=== PATIENT | female | born 1975 | race African-American/Black ===

== ENCOUNTER 2020-07-20 02:47 | Outpatient (CLI) | payer SELFPAY ==
[2020-07-20 20:23] LABS: COVID-19 RT-PCR UVMMC Result Negative (Negative)
== END 2020-07-20 03:07 ==
PROVIDERS: PCP Student in an Organized Health Care Education/Training Program; Visit Provider Student in an Organized Health Care Education/Training Program
DX: Z20.822 Contact with and (suspected) exposure to COVID-19 (principal)
CPT/HCPCS: U0003

== ENCOUNTER 2020-12-08 02:07 | Outpatient (CLI) | payer SELFPAY ==
[2020-12-08 14:31] LABS: HCT 38.3 % (36.0-46.0); MCH 30.4 pg (27.0-33.0); MCHC 33.9 % (32.0-36.0); MCV 89.5 fL (80-95); MPV 9.1 fL (8.0-11.0); Platelet Count 280 10^3/uL (130-400); RBC 4.28 10^6/uL (3.93-5.22); RDW 11.6 % (11.7-14.6); RDW-SD 38.1 fL; WBC 9.49 10^3/uL (4.4-10.8)
[2020-12-08 15:43] LABS: ALT 45 U/L (14-59); AST 16 U/L (15-37); Albumin 4.2 g/dL (3.4-5.0); Alkaline Phosphatase 56 U/L (46-116); Anion Gap 7.4 mmol/L (3-11); BUN 10 mg/dL (7-18); Bilirubin, Total 0.3 mg/dL (0.2-1.0); CO2 32.6 mmol/L (21.0-32.0); Calcium 9.3 mg/dL (8.5-10.1); Calculated LDL 164 mg/dL (<100); Chloride 98 mmol/L (98-107); Cholesterol 218 mg/dL (<200); Glucose 222 mg/dL (74-106); HDL Cholesterol 36 mg/dL (40-60); Potassium 3.3 mmol/L (3.5-5.1); Sodium 138 mmol/L (136-145); TSH (W/Ref FT4) 0.34 uIU/mL (0.36-3.74); Total Protein 8.5 g/dL (6.4-8.2); Triglyceride 90 mg/dL (<150)
[2020-12-08 16:06] LABS: FREE T4 1.27 ng/dL (0.76-1.46)
[2020-12-11 04:52] LABS: Vitamin D 25 Total 12.4 ng/mL (30-100)
== END 2020-12-08 02:08 | disposition home or self-care (01) ==
LOC: LBO 02:07
PROVIDERS: PCP Student in an Organized Health Care Education/Training Program; Visit Provider Student in an Organized Health Care Education/Training Program
DX: E11.65 Type 2 diabetes mellitus with hyperglycemia (principal); I10 Essential (primary) hypertension; R63.4 Abnormal weight loss; R53.83 Other fatigue; E86.0 Dehydration; E55.9 Vitamin D deficiency, unspecified
CPT/HCPCS: 36415; 80053; 80061; 82306; 85027; 84439; 84443

== ENCOUNTER 2021-10-17 02:44 | Outpatient (CLI) | payer BC, SELFPAY ==
[2021-10-17 09:42] LABS: Anion Gap 9.3 mmol/L (3-11); BUN 14 mg/dL (7-18); CO2 32.7 mmol/L (21.0-32.0); CREATININE 0.7 mg/dL (0.55-1.02); Calcium 8.8 mg/dL (8.5-10.1); Chloride 98 mmol/L (98-107); Glucose 148 mg/dL (74-106); Magnesium 2.2 mg/dL (1.8-2.4); Potassium 3.2 mmol/L (3.5-5.1); Sodium 140 mmol/L (136-145); TSH (W/Ref FT4) 0.71 uIU/mL (0.36-3.74)
== END 2021-10-17 02:45 | disposition home or self-care (01) ==
LOC: LBO 02:45
PROVIDERS: PCP Student in an Organized Health Care Education/Training Program; Visit Provider Student in an Organized Health Care Education/Training Program
DX: I10 Essential (primary) hypertension (principal); E11.65 Type 2 diabetes mellitus with hyperglycemia; E87.6 Hypokalemia; R79.89 Other specified abnormal findings of blood chemistry
CPT/HCPCS: 36415; 80048; 83735; 84443

== ENCOUNTER 2021-11-01 02:39 | Outpatient (CLI) | payer BC, SELFPAY ==
[2021-11-01 08:56] LABS: BUN 12 mg/dL (7-18); CREATININE 0.8 mg/dL (0.55-1.02); Calcium 8.7 mg/dL (8.5-10.1); Chloride 102 mmol/L (98-107); Glucose 149 mg/dL (74-106); Potassium 3.7 mmol/L (3.5-5.1); Sodium 133 mmol/L (136-145)
== END 2021-11-01 02:40 | disposition home or self-care (01) ==
LOC: LBO 02:39
PROVIDERS: PCP Student in an Organized Health Care Education/Training Program; Visit Provider Student in an Organized Health Care Education/Training Program
DX: E87.6 Hypokalemia (principal)
CPT/HCPCS: 36415; 80048

== ENCOUNTER 2021-11-08 12:40 | Outpatient (CLI) | payer BC, SELFPAY ==
--- NOTE | 2021-11-08 08:49 | DI.RAD_ITS ---
Exam(s) XR CERVICAL SP COMP W FLEX/EXT EXAM: XR CERVICAL SP COMP W FLEX/EXT CLINICAL HISTORY: evaluate for spacing, arthritis, bony path,neuropathy,h/o neck injury,h/o TECHNIQUE: COMPARISON: No exams were available for comparison FINDINGS: Six views were obtained including flexion and extension lateral views. Flexion and extension lateral views are unremarkable. Intervertebral disc spaces are well maintained. Neural foramina appear wel l maintained on oblique views. No bony abnormality seen. IMPRESSION: Negative examination of the cervical spine. RADIATION DOSE DELIVERED: Total DLP
== END 2021-11-08 13:00 ==
PROVIDERS: PCP Student in an Organized Health Care Education/Training Program; Visit Provider Student in an Organized Health Care Education/Training Program
DX: G62.9 Polyneuropathy, unspecified (principal); Z87.828 Personal history of other (healed) physical injury and trauma; Z91.81 History of falling; M47.812 Spondylosis without myelopathy or radiculopathy, cervical region
CPT/HCPCS: 72052

== ENCOUNTER 2022-04-19 01:38 | Outpatient (CLI) | payer MEDICAID, SELFPAY ==
--- OUTSIDE RECORDS SUMMARY | 2022-04-19 01:46 | XMS_ITS | Encounter Summary ---
:1975 Author Organization [facility] Address [address] [place] [address] Care Team Providers Name Role Phone Leodan Barnes MD Primary Care Provider Reason for Visit Reason Comments Skin Lesion Encounter Details Date Type Department Care Team Description 06/04/2011 Office Visit Dermatology David Barnard, ulceration (Primary [address]) [address] [place] [address] [id number] [place] [id number] [phone] (Wo rk) Social History Tobacco Use Types Packs/Day Years Used Date Current Every Day Smoker Cigarettes 0.5 10 Sex Assigned at Date Recorded Not on file documented as of this encounter Progress Notes David Barnard MD - 06/04/2011 10:21 AM EST Problems: 1. Followup arthropod bite reactions, lower extremities/ulcerations. 2. Hidradenitis suppurativa. Ebony follows up after last being seen in March. She states that she took Bactrim from my prescription for a week and has been using topical Clindamycin for the hidradenitis. Unfortunately while many of the sites healed on her legs they have not all healed. She is still living in the same apartment. She wonders what else can be done. Physical examination reveals a pleasant 35-year-old woman who is diabetic, overweight and today has two open ulcerations on the right lower extremity laterally on the calf, and one on the left lower ankle laterally. She has hyperpigmented macules at the sites of previous dermatitis and healing. Most of the previous sites have healed. There are no bullae today. 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 a. Sites are not currently itchy but just hurt. No new sites seen. b. Patient has been squeezing these, using iodine, hydrogen peroxide and cleansing them vigorously. c. Recommended that she discontinue this and instead apply Bactroban Ointment and then regular band aid after washing with soap and water once a day. Do not wash with Hibiclens. d. Recommended that she begin Bactroban double strength one p.o. BID for a month and a half then return to clinic. e. Also begin acidophilous tablets one p.o. q. day to prevent vaginal yeast infection. Hidradenitis suppurativa. a. Continue Clindamycin 1% Solution applying q. day to affected areas on a prophylactic basis after washing. b. Patient counseled that things do look overall better although she does now have these three chronic nonhealing ulcerations. She does not have multiple sites as last visit. Copy: TARA Hair documented in this encounter Plan of Treatment Not on filedocumented as of this encounter Visit Diagnoses Diagnosis ulceration - Primary Ulceration of intestine documented in this encounter Care Teams Genetic Engineer Relationship Specialty Start Date End Date Leodan Barnes MD PCP - General 06/04/11 02/07/[address] [place] [phone] documented as of this encounter
--- OUTSIDE RECORDS SUMMARY | 2022-04-19 01:46 | XMS_ITS | Encounter Summary ---
:1975 Author Organization [facility] Address [address] [place] [address] Care Team Providers Name Role Phone Unknown, Provider Primary Care Provider Reason for Visit Reason Onset Date Comments Eye Problem 01/25/2022 Encounter Details Date Type Department Care Team Description 01/25/2022 Telephone [facility] Ophthalmology Unknown, Doctor Eye Problem - [facility] [address] [place], [place] [address] Social History Tobacco Use Types Packs/Day Years Used Date Never Assessed Sex Assigned at Date Recorded Not on file documented as of this encounter Miscellaneous Notes Telephone Encounter - Cici Ceballos - 01/25/2022 1648 EDT Angela set pt up for appt agustín/ MASHA on 01/29/2022 elephone Encounter - Tara Vazquez - 01/25/2022 1627 EDT Urgent referral for Vit Heme LT. See note in Media documented in this encounter Plan of Treatment Upcoming Encounters Date Type Specialty Care Team Description 04/30/2022 Office Visit Ophthalmology Alon Guzman MD [address] [facility], [place], [facility] [place] [address] [place], [place] [phone] (Wo rk) 05/28/2022 Office Visit Ophthalmology Alon Guzman MD [address] [facility], [place], [facility] [address] [place], [place] [phone] (Wo rk) documented as of this encounter Visit Diagnoses Not on filedocumented in this encounter Care Teams Curator [employer] Relationship Specialty Start Date End Date Unknown, Provider, PCP - General 11/30/10 documented as of this encounter
--- OUTSIDE RECORDS SUMMARY | 2022-04-19 01:46 | XMS_ITS | Encounter Summary ---
:1975 Author Organization [facility] Address [address] [place] [address] Care Team Providers Name Role Phone Unknown, Provider Primary Care Provider Encounter Details Date Type Department Care Team Description 05/13/2016 Results Only [facility]- Mariel Graves, [facility] [place], [place] [address] (Wo rk) Social History Tobacco Use Types Packs/Day Years Used Date Never Assessed Sex Assigned at Date Recorded Not on file documented as of this encounter Plan of Treatment Upcoming Encounters Date Type Specialty Care Team Description 04/30/2022 Office Visit Ophthalmology Alon Guzman MD [address] [phone] (Wo rk) 05/28/2022 Office Visit Ophthalmology Alon Guzman MD [address] [phone] (Wo rk) documented as of this encounter Procedures Procedure Name Priority Date/Time Associated Diagnosis Comme nts PAP TEST- RESULT Routine 05/13/2016 0:00 EDT Resu lts for this ONLY procedure are i n the results section. documented in this encounter Results PAP TEST- RESULT ONLY (05/13/2016 0:00 EDT) Pathology Report: CYTOPATHOLOGY REPORT [facility] Reports generated via electronic interface contain tone ginal data; SERVICES however they are lacking the format of the original re port. Caution should be taken when reading/interpreting unfo rmatted reports. Name: ? EBONY SALES ? Accession #: ? [id number] ? : ? 1975 (Age: [age]) ??F ?Collect Da te: ? 05/13/2016 ? Location: ? [facility] ? Receive Date: ? 05/14/20 16 ? Provider: MARIEL HALEY NJW Copy to: ? Final Report SPECIMEN ADEQUACY ? Satisfactory for Evaluation - transformation zone component present GENERAL CATEGORIZATION ? Negative for Intraepithelial Lesion or Malignan cy INTERPRETATION ? Shift in joanie present suggestive of bacterial vaginosis. Last Menstrual Period: 04/18/2016 Hormonal/Contraceptive status: None Other: Additional clinical information: previous paps WNL 11/15, 11/21 Specimen/Source: ??Pap Test, Cervix/Endocervix, ThinPr ep Imaging System with manual evaluation Document reviewed and electronically signed by: ? Nimco Garcia, [place](ASCP) ? Report ??Date: 05/16/2016 09:54 HPV with Pap Test ? Date Ordered: ? 05/16/2016 ? Status: ?? Signed Out ?Date Complete: ? 05/22/2016 ? By: ??Sy stem Interface ? Date Reported: ? 05/22/2016 ? Interpretation RESULT: Negative for HPV. No E6 or E7 mRNA is detected from HPV types 16,18,31,3 3,35, 39,45,51,52,56,58,59,66, and 68 by relay telegrapher media susan amplification. Comments Document reviewed and electronically signed by: ? System Interface ? Report date: 05/22/2016 By the signature above, the attending physician certif ies that he/she has personally conducted a gross and/or microscopic examin ation of the described specimens and rendered or confirmed the above diagnosi s. End of Report Specimen Performing Organization Address City/State/[facility] Code Phon e Number [facility] [address] [place] [address] SERVICES documented in this encounter Visit Diagnoses Not on filedocumented in this encounter Care Teams Head Of Science Relationship Specialty Start Date End Date Unknown, Provider, PCP - General 11/30/10 documented as of this encounter
--- OUTSIDE RECORDS SUMMARY | 2022-04-19 01:46 | XMS_ITS | Encounter Summary ---
:1975 Author Organization [facility] Address [address] [place] [address] Care Team Providers Name Role Phone Unknown, Provider Primary Care Provider Reason for Visit Reason Comments Eye Problem Encounter Details Date Type Department Care Team Description 02/04/2022 Office Visit [facility] Alon Guzman MD Ophthalmology - [address], [facility] [address] [place], [place] [address] [place], [place] [phone] (Wo rk) Social History Tobacco Use Types Packs/Day Years Used Date Current Every Day Smoker Cigarettes 2 Smokeless Tobacco: Never Used Comments: quitting. 2 cigaretes a day Alcohol Use Standard Drinks/Week Comments Not Currently 0 (1 standard drink = 0.6 oz pure alcoho l) Sex Assigned at Date Recorded Not on file documented as of this encounter Progress Notes Alon Guzman MD - 02/04/2022 1230 EDT Chief Complaint Patient presents with ??? Eye Problem Comments Proliferative diabetic retinopathy both eyes HPI Location: Both eyes Pain: 0 - No pain Quality: Blurry Severity: Moderate Duration: Weeks Timing: Constant Lasts: Continuous Context: PDR both eyes Modifying factors: DM Type 2. A1C=5.3 BS are good. Hx of Laser and Hx of Eylea injections to both eyes Associated Signs & Symptoms: vit heme left eye s/p Eylea Visual Fluctuations: Floaters Attestation: Base Eye Exam Visual Acuity (Snellen - Linear) Right Left Dist cc 20/40 20/50 -1 Dist ph cc NI NI Correction: Glasses Tonometry (Applanation, 12:55) Right Left Pressure 20 20 Slit Lamp and Fundus Exam Slit Lamp Exam Right Left Lids/Lashes Normal Normal Conjunctiva/Sclera White and quiet White and quiet Cornea Clear Clear Anterior Chamber Deep and quiet Deep and quiet Iris No neovascularization No neovascularization Lens Nuclear sclerosis Nuclear sclerosis, Cortical cataract All five layers of the cornea are normal unless otherwise specified. Please refer to large retinal drawing. Destruction Prog Retinopathy Photocoag - OD - Right Eye Time Out Confirmed correct patient, procedure, site, and patient consented. Anesthesia Topical anesthesia was used. Anesthetic medications included Proparacaine 0.5%. Laser Information The type of laser was argon. Color was yellow. The duration in seconds was 0.1. The spot size was 200 microns. Laser power was 400. Total spots was 315. Post-op The patient tolerated the procedure well. There were no complications. IMPRESSION: 1. Proliferative diabetic retinopathy associated with type 2 diabetes mellitus, macular edema presence unspecified, unspecified laterality (HCC-CMS) (HCC) DESTRUCTION PROG RETINOPATHY PHOTOCOAG - OD - RIGHT EYE PLAN: Proliferative diabetic retinopathy both eyes Malone retinal photocoagulation added to right eye today #351 Does have some mild VH in this eye too Able to do some laser, but will add more when vit heme clears further Return 1 month, Eylea both eyes I have reviewed the patient's past medical, family, social and surgical history. I have also reviewed the patient's medications, allergies, and problem list. I performed my own HPI and have reviewed the tech's ROS as well. I personally completed this exam myself. Alon Guzman MD I am scribing for Dr. Alon Guzman MD, while he is personally performing the service. BARRON Knight (Scribe) documented in this encounter Plan of Treatment Upcoming Encounters Date Type Specialty Care Team Description 04/30/2022 Office Visit Ophthalmology Alon Guzman MD 111 [facility], [facility], [address] [place], [place] [phone] (Wo rk) 05/28/2022 Office Visit Ophthalmology Alon Guzman MD 111 [facility], [place], [address] [place], [place] [phone] (Wo rk) documented as of this encounter Procedures Procedure Name Priority Date/Time Associated Diagnosis Comme nts DESTRUCTION PROG Routine 02/04/2022 14:17 Proliferative Result s for this RETINOPATHY EDT diabetic retinopathy procedu re are in PHOTOCOAG - OD - associated with type the results RIGHT EYE 2 diabetes mellitus, section . macular edema presence unspecified, unspecified laterality (HCC-CMS) (HCC) documented in this encounter Results DESTRUCTION PROG RETINOPATHY PHOTOCOAG - OD - RIGHT EYE (02/04/2022 14:17 EDT) Specimen Narrative [facility] POINT OF CARE - 02/04/2022 14:17 E DT Time Out Confirmed correct patient, procedure, si te, and patient consented. Anesthesia Topical anesthesia was used. Anesthetic medications included Proparacaine 0.5%. Laser Information The type of laser was argon. Color was y ellow. The duration in seconds was 0.1. The spot size was 200 microns. Lase r power was 400. Total spots was 315. Post-op The patient tolerated the procedure well . There were no complications. Performing Organization Address City/State/ZIP Code Phon e Number [facility] POINT OF CARE documented in this encounter Visit Diagnoses Diagnosis Proliferative diabetic retinopathy assoc iated with type 2 diabetes mellitus, macular edema presence unspecified, unspecified laterality (HCC-CMS) (HCC) - Primary documented in this encounter Eye Exam Visual Acuity (Snellen - Linear) Right eye Left eye Dist cc 20/40 20/50 -1 Dist ph cc NI NI Correction: Glasses Tonometry (Applanation, 12:55) Right eye Left eye Pressure 20 20 Slit Lamp Exam Right eye Left eye Lids/Lashes Normal Normal Conjunctiva/Sclera White and quiet White and quiet Cornea Clear Clear Anterior Chamber Deep and quiet Deep and quiet Iris No neovascularization No neovascularizat ion Lens Nuclear sclerosis Nuclear sclerosis, C ortical cataract Care Teams Electroneurodiagnostic Technician Relationship Specialty Start Date End Date Unknown, Provider, PCP - General 11/30/10 documented as of this encounter
--- OUTSIDE RECORDS SUMMARY | 2022-04-19 01:46 | XMS_ITS | Encounter Summary ---
:1975 Author Organization [facility] Address [address] [place] [address] Care Team Providers Name Role Phone Unknown, Provider Primary Care Provider Encounter Details Date Type Department Care Team Description 11/29/2010 Results Only [facility] Mariel Jama, Laboratory Services - [facility] [address] [facility] [address] [place] [address] [place] [address] [phone] Social History Tobacco Use Types Packs/Day Years Used Date Never Assessed Sex Assigned at Date Recorded Not on file documented as of this encounter Plan of Treatment Upcoming Encounters Date Type Specialty Care Team Description 04/30/2022 Office Visit Ophthalmology Alon Guzman MD [address] [phone] (Wo rk) 05/28/2022 Office Visit Ophthalmology Alon Guzman MD [address] [phone] (Wo rk) documented as of this encounter Procedures Procedure Name Priority Date/Time Associated Diagnosis Comme nts PAP TEST- RESULT Routine 11/29/2010 0:00 EDT Resu lts for this ONLY procedure are i n the results section. documented in this encounter Results PAP TEST- RESULT ONLY (11/29/2010 0:00 EDT) Pathology Report: CYTOPATHOLOGY REPORT ? [facility] ? LAB Reports generated via electr onic interface contain original data; ? however they are lacking the format of the original report. ? Caution should be taken when reading/interpreting unformatted reports. ? Name: ? EBONY SALES ? Accession #: ? [id number] ? : ? 1975 (Age: 35) ??F ?Collect Date: ? 11/29/2010 ? Location: ? [facility] ? R eceive Date: ? 11/30/2010 ? Provider: MARIEL JAMA CNM ? Copy to: ? Final Report ? SPECIMEN ADEQUACY ? Satisfactory for Eval uation ? - transformation zone compon ent absent ? GENERAL CATEGORIZATION ? Negative for Intraepi thelial Lesion or Malignancy ? INTERPRETATION ? Shift in ojanie presen t suggestive of bacterial vaginosis. ? Last Menstural Period: 5/8/1 1 ? Specimen/Source: ??Pap Test, Cervix/Endocervix, ThinPrep Imaging System with ? manual evaluation ? Document reviewed and electr onically signed by: ? Lgoria Verville,CT(ASCP) ? Report ??Date: /25/ 2010 13:44 ? HPV with Pap Test ? Date Ordered: ? 0 12/05/2010 ? Status: ?? Signed Out ?Date Complete: ? 12/10/2010 ? By: ??System Interface ? Date Reported: ? 12/10/2010 ? Interpretation ? RESULT: Negative for HPV typ es 16, 18, 31, 33, 35, 39, 45, 51, 52, ? 56, 58, 59, and 68. ? Comments ? Document reviewed and electr onically signed by: ? System Interface ? Report date: 05/30/20 11 ? By the signature above, the attending physician certifies that he/she has ? personally conducted a gross and/or microscopic examination of the described ? specimens and rendered or co nfirmed the above diagnosis. ? End of Report ? Specimen Performing Organization Address City/State/[facility] Code Phon e Number [facility] [address] [place] [address] SERVICES [facility] [address] [place] [address] documented in this encounter Visit Diagnoses Not on filedocumented in this encounter Care Teams Physical Therapy Technician Relationship Specialty Start Date End Date Unknown, Provider, PCP - General 11/30/10 documented as of this encounter
--- OUTSIDE RECORDS SUMMARY | 2022-04-19 01:46 | XMS_ITS | Encounter Summary ---
:1975 Author Organization [facility] Address [address] [place] [address] Care Team Providers Name Role Phone Unknown, Provider Primary Care Provider Reason for Visit Reason Comments Eye Problem Encounter Details Date Type Department Care Team Description 03/19/2022 Office Visit [facility] Alon Guzman MD Ophthalmology - [address], [address], [facility] 5 [place], [place] [address] [place], [place] [phone] (Wo rk) Social History Tobacco Use [...] encounter Progress Notes Alon Guzman MD - 03/19/2022 1230 EDT Chief Complaint Patient presents with ??? Eye Problem Comments PDR both eyes HPI Location: Both eyes Pain: 0 - No pain Quality: Blurry Severity: Moderate Duration: Years Timing: Lasts: Continuous Context: PDR both eyes Modifying factors: s/p PRP right eye 02/04/22 and Eylea left eye 01/29/22 Associated Signs & Symptoms: Vision better both eyes. Did stop working due to strenoues activity. Since then floaters have diminished and fogginess has improved. Same flashes decrease floaters Visual Fluctuations: Attestation: Base Eye Exam Visual Acuity (Snellen - Linear) Right Left Dist cc 20/60 20/50 +2 Dist ph cc NI NI Correction: Glasses Tonometry (Applanation, 12:44) Right Left Pressure 22 22 Pupils Pupils Right PERRL Left PERRL Neuro/Psych Oriented x3: Yes Mood/Affect: Normal Dilation Both eyes: Tropicamide 1%, Phenylephrine 2.5% @ 12:44 Slit Lamp and Fundus Exam Slit Lamp Exam Right Left Anterior Chamber Deep and quiet Deep and quiet All five layers of the cornea are normal unless otherwise specified. Please refer to large retinal drawing. Intravitreal Injection, Pharmacologic Agent - OU - Both Eyes Time Out 03/19/2022. 12:50. Confirmed correct patient, procedure, site, and patient consented. Anesthesia Right Eye Topical anesthesia was used. Anesthetic medications included Tetracaine 0.5%. Left Eye Topical anesthesia was used. Anesthetic medications included Tetracaine 0.5%, Proparacaine 0.5%. Procedure Right Eye Preparation included 5% betadine to ocular surface, eyelid speculum. A 30 gauge needle was used. Injection: 2 mg aflibercept (EYLEA) intravitreal syringe NDC: 66802-661-82, Lot: [id number], Expiration date: 08/14/2022 Route: intravitreal, Site: Right Eye Left Eye Preparation included 5% betadine to ocular surface, eyelid speculum. A 30 gauge needle was used. Injection: 2 mg aflibercept (EYLEA) intravitreal syringe NDC: 91830-545-54, Lot: [id number], Expiration date: 08/14/2022 Route: intravitreal, Site: Left Eye Post-op Right Eye Post injection exam found visual acuity of at least counting fingers. The patient tolerated the procedure well. There were no complications. Post injection medications were not given. Left Eye Post injection exam found visual acuity of at least counting fingers. The patient tolerated the procedure well. There were no complications. Post injection medications were not given. IMPRESSION: 1. Proliferative diabetic retinopathy associated with type 2 diabetes mellitus, macular edema presence unspecified, unspecified laterality ([facility]) ([facility]) INTRAVITREAL INJECTION, PHARMACOLOGIC AGENT - OU - BOTH EYES aflibercept (EYLEA) intravitreal syringe 2 mg aflibercept (EYLEA) intravitreal syringe 2 mg PLAN: Type 2 DM PDR both eyes Eylea both eyes today Discussed will need to start laser in the left eye at next appointment Pt agrees Return if symptoms worsen or fail to improve, for 4-6 weeks, PRP, left eye. I have reviewed the patient's past medical, family, social and surgical history. I have also reviewed the patient's medications, allergies, and problem list. I performed my own HPI and have reviewed the tech's ROS as well. I personally completed this exam myself. Alon Guzman MD I am scribing for Dr. Alon Guzman MD, while he is personally performing the service. GLADIS Ferris (Scribe) documented in this encounter Plan of Treatment Upcoming Encounters Date Type Specialty Care Team Description 04/30/2022 Office Visit Ophthalmology Alon Guzman MD [address] [facility], [facility], [facility] 5 [place], [place] [phone] (Wo rk) 05/28/2022 Office Visit Ophthalmology Alon Guzman MD [address] [facility], [facility], [facility] 5 [place], [place] [phone] (Wo rk) documented as of this encounter Procedures Procedure Name Priority Date/Time Associated Diagnosis Comme nts INTRAVITREAL Routine 03/19/2022 13:02 Proliferative Results fo r this INJECTION, EDT diabetic retinopathy procedu re are in PHARMACOLOGIC AGENT - associated with typ e the results OU - BOTH EYES 2 diabetes mellitus, secti on. macular edema presence unspecified, unspecified laterality (HCC-CMS) (HCC) documented in this encounter Results INTRAVITREAL INJECTION, PHARMACOLOGIC AGENT - OU - BOTH EYES (03/19/2022 13:02 EDT) Specimen Narrative [facility] POINT OF CARE - 03/19/2022 13:13 E DT Time Out 03/19/2022. 12:50. Confirmed correct patie nt, procedure, site, and patient consented. Anesthesia Right Eye Topical anesthesia was used. Anesthetic medications included Tetracaine 0.5%. Left Eye Topical anesthesia was used. Anesthetic medications included Tetracaine 0.5%, Proparacaine 0.5%. Procedure Right Eye Preparation included 5% betadine to ocul ar surface, eyelid speculum. A 30 gauge needle was used. Injection: 2 mg aflibercept (EYLEA) intravitreal sy ringe ??ND: 17989-614-00, Lot: [id number], E xpiration date: 08/14/2022 ??Route: intravitreal, Site: Right Eye Left Eye Preparation included 5% betadine to ocul ar surface, eyelid speculum. A 30 gauge needle was used. Injection: 2 mg aflibercept (EYLEA) intravitreal sy ringe ??NDC: 00606-151-69, Lot: [id number], E xpiration date: 08/14/2022 ??Route: intravitreal, Site: Left Eye Post-op Right Eye Post injection exam found visual acuity of at least counting fingers. The patient tolerated the procedure well. Th ere were no complications. Post injection medications were not given. Left Eye Post injection exam found visual acuity of at least counting fingers. The patient tolerated the procedure well. Th ere were no complications. Post injection medications were not given. Performing Organization Address City/State/ZIP Code Phon e Number [facility] POINT OF CARE documented in this encounter Visit Diagnoses Diagnosis Proliferative diabetic retinopathy assoc iated with type 2 diabetes mellitus, macular edema presence unspecified, unspecified laterality ([facility]) ([facility]) - Primary documented in this encounter Administered Medications Inactive Administered Medications - up to 3 most recent administrations Medication Order MAR Action Action Date Dose Rate Site aflibercept (EYLEA) intravitreal Given 03/19/2022 12:49 EDT 2 mg Right Eye syringe 2 mg 2 mg, intravitreal, Starting on Fri03/19/22 at 1249, Until Fri03/19/22 at 1514, Routine aflibercept (EYLEA) intravitreal syringe 2 Given 03/19/2022 12:4 9 EDT 2 mg Left Eye mg 2 mg, intravitreal, Starting on Fri03/19/22 at 1249, Until Fri03/19/22 at 1514, Routine documented in this encounter Orders Medications Ordered That Might Not Have Count Last Ord ered Date First Ordered Date Been Administered aflibercept (EYLEA) intravitreal syringe 2 1 03/19 mg documented in this encounter Eye Exam Visual Acuity (Snellen - Linear) Right eye Left eye Dist cc 20/60 20/50 +2 Dist ph cc NI NI Correction: Glasses Tonometry (Applanation, 12:44) Right eye Left eye Pressure 22 22 Pupils Pupils Right eye PERRL Left eye PERRL Neuro/Psych Oriented x3: Yes Mood/Affect: Normal Dilation Both eyes: Tropicamide 1%, Phenylephrine 2.5% @ 12:44 Slit Lamp Exam Right eye Left eye Anterior Chamber Deep and quiet Deep and quiet Care Teams Clearing Distribution Clerk Relationship Specialty Start Date End Date Unknown, Provider, PCP - General 11/30/10 documented as of this encounter
--- OUTSIDE RECORDS SUMMARY | 2022-04-19 01:46 | XMS_ITS | Clinical Summary ---
:1975 Author Organization [facility] Address [address] [place] [address] Care Team Providers Name Role Phone Unknown, Provider Primary Care Provider Allergies No known active allergies Medications Medication Sig Dispensed Refills Start Date End Date Status multivitamin Take 1 Tablet by 0 Active (NEPHROVITE) 0.8 mg mouth at tablet bedtime. vitamin B cmplex Take 1 Tablet by 0 Active 3-IM-V-biotin mouth daily. (NEPHRO-ALY RX) 1-60-300 mg-mg-mcg tablet buPROPion (WELLBUTRIN) Take 200 mg by 0 Active 100 mg tablet mouth 2 times daily. cholecalciferol, Vitamin Take 1,000 Units 0 Active D3, 25 mcg (1,000 unit) by mouth daily. tablet gabapentin (NEURONTIN) Take 100 mg by 0 Active 100 mg capsule mouth 3 times daily. Lutein 10 mg tablet Take by mouth. 0 Active ibuprofen (MOTRIN) 600 Take 600 mg by 0 Active mg tablet mouth as needed for Pain. acetaminophen (TYLENOL) Take 1,000 mg by 0 Active 500 mg tablet mouth as needed for Pain. Active Problems No known active problems Encounters Date Type Specialty Care Team Description 03/19/2022 Office Visit Ophthalmology Alon Guzman MD 02/04/2022 Office Visit Ophthalmology Alon Guzman MD 01/29/2022 Office Visit Ophthalmology Alon Guzman MD 01/25/2022 Telephone Ophthalmology Unknown, Doctor Eye Prob mona from Last 3 Months Medical History Medical History Date Comments Cataract Other states following surgery of eye and adnexa Family History Medical History Relation Name Comments Diabetes Father Hypertension Father Tuberculosis Father Diabetes Mother Hypertension Mother Relation Name Status Comments Father Mother Social History Tobacco Use Types Packs/Day Years Used Date Current Every Day Smoker Cigarettes 2 Smokeless Tobacco: Never Used Comments: quitting. 2 cigaretes a day Alcohol Use Standard Drinks/Week Comments Not Currently 0 (1 standard drink = 0.6 oz pure alcoho l) Sex Assigned at Date Recorded Not on file Plan of Treatment Upcoming Encounters Date Type Specialty Care Team Description 04/30/2022 Office Visit Ophthalmology Alon Guzman MD [address] [facility], [address] [place], [place] [phone] (Wo rk) 05/28/2022 Office Visit Ophthalmology Alon Guzman MD [address] [facility], [address], [address] [place], [place] [phone] (Wo rk) Health Maintenance Due Date Last Done Comments Foot Exam 1975 Hemoglobin A1C (Ha1C) 1975 Hepatitis C Screen 1975 Microalbumin/Creatinine Ratio 1975 COVID-19 Vaccine (#1) 02/26/1978 Lipid Profile Screening (Cholesterol) 1980 Pneumococcal Immunization (1 - PCV) 1983 Hepatitis B Vaccine (1 of 3 - Risk 1996 3-dose series) Eye Exam 03/19/2023 03/19/2022, 02/04/2022, 01/29/2022 Procedures Procedure Name Priority Date/Time Associated Diagnosis Comme nts INTRAVITREAL Routine 03/19/2022 13:02 Proliferative Results fo r this INJECTION, EDT diabetic retinopathy procedu re are in PHARMACOLOGIC AGENT - associated with typ e the results OU - BOTH EYES 2 diabetes mellitus, secti on. macular edema presence unspecified, unspecified laterality ([facility]) ([facility]) DESTRUCTION PROG Routine 02/04/2022 14:17 Proliferative Result s for this RETINOPATHY PHOTOCOAG EDT diabetic retinopath y procedure are in - OD - RIGHT EYE associated with type the results 2 diabetes mellitus, section . macular edema presence unspecified, unspecified laterality ([facility]) ([facility]) INTRAVITREAL Routine 01/29/2022 12:29 Proliferative Results fo r this INJECTION, EDT diabetic retinopathy procedu re are in PHARMACOLOGIC AGENT - associated with typ e the results OS - LEFT EYE 2 diabetes mellitus, sectio n. macular edema presence unspecified, unspecified laterality ([facility]) ([facility]) B-SCAN ULTRASOUND - Routine 01/29/2022 12:28 Vitreous hemorrha ge Results for this OS - LEFT EYE EDT of left eye ([facility]) mehdi wood are in ([facility]) the results section. from Last 3 Months Results INTRAVITREAL INJECTION, PHARMACOLOGIC AGENT - OU - BOTH EYES (03/19/2022 13:02 EDT) Specimen Narrative [facility] POINT OF CARE - 03/19/2022 13:13 E [...] 2 mg aflibercept (EYLEA) intravitreal sy ringe ??[facility]: 71840-614-42, Lot: [id number], E xpiration date: 08/14/2022 ??Route: intravitreal, Site: Right Eye Left Eye Preparation included 5% betadine to ocul ar surface, eyelid speculum. A 30 gauge needle was used. Injection: 2 mg aflibercept (EYLEA) intravitreal sy ringe ??ND: 05255-446-78, Lot: [id number], E xpiration date: 08/14/2022 ??Route: intravitreal, Site: [...] Organization Address City/State/ZIP Code Phon e Number [facility] POINT OF CARE DESTRUCTION PROG RETINOPATHY PHOTOCOAG - OD - RIGHT EYE (02/04/2022 14:17 EDT) Specimen Narrative [facility] POINT OF CARE - 02/04/2022 14:17 E [...] There were no complications. Performing Organization Address [facility] Phon e Number [facility] INTRAVITREAL INJECTION, PHARMACOLOGIC AGENT - OS - LEFT EYE (01/29/2022 12:29 EDT) Specimen Narrative [facility] POINT OF CARE - 01/29/2022 12:29 E DT Time Out 01/29/2022. 11:26. Confirmed correct cori ent, procedure, site, and patient consented. Anesthesia Topical anesthesia was used. Anesthetic medications included Tetracaine 0.5%, Proparacaine 0.5%. Procedure Preparation included eyelid speculum, 5% betadine to ocular surface. A 30 gauge needle was used. Injection: 2 mg aflibercept (EYLEA) intravitreal sy chandni ??[facility]: 93874-078-67, Lot: [id number], E xpiration date: 09/01/2022 ??Route: intravitreal, Site: Left Eye Post-op Post injection exam found visual acuity of at least counting fingers. The patient tolerated the procedure well. Th ere were no complications. The patient received written and verbal post procedure care education. Post injection medications were not given. Performing Organization Address [facility] Phon e Number [facility] B-SCAN ULTRASOUND - OS - LEFT EYE (01/29/2022 12:28 EDT) Specimen Narrative [facility] POINT OF CARE - 01/29/2022 12:28 E DT Quality was good. Findings included vitreous hemorrhage. Notes Retina flat Significant VH Performing Organization Address [facility] Phon e Number [facility] POINT OF CARE from Last 3 Months Insurance Payer Benefit Plan / Subscriber ID Effective Dates Phone Addre ss Type Group [employer] [place] [employer] [id number] 2021-Present [address] MVP [place] [phone] Ebony Wilcox Personal/Family Self [address] ([address]) [address] [place] [address] Ebony Wilcox Personal/Family Self [address] ([address]) [address] [place] [address] Ebony Wilcox Personal/Family Self [address] ([address]) [address] [place] [address] Care Teams College Scouting Coordinator Relationship Specialty Start Date End Date Unknown, Provider, PCP - General 11/30/10
--- OUTSIDE RECORDS SUMMARY | 2022-04-19 01:46 | XMS_ITS | Encounter Summary ---
:1975 Author Organization [facility] Address [address] [place] [address] Care Team Providers Name Role Phone Unknown, Provider Primary Care Provider Encounter Details Date Type Department Care Team Description 10/29/2018 Hospital Encounter [facility] Unknown, Provider, [facility] 0 [facility] [phone] [place] [address] (Work) [phone] Social History Tobacco Use Types Packs/Day Years Used Date Never Assessed Sex Assigned at Date Recorded Not on file documented as of this encounter Discharge Disposition Disposition Code Departure Means Destination Home or Self Jail documented in this encounter Plan of Treatment Upcoming Encounters Date Type Specialty Care Team Description 04/30/2022 Office Visit Ophthalmology Alon Guzman MD [address] [place] [phone] (Wo rk) 05/28/2022 Office Visit Ophthalmology Alon Guzman MD [address] [phone] (Wo rk) documented as of this encounter Visit Diagnoses Not on filedocumented in this encounter Care Teams Manager Mobility Relationship Specialty Start Date End Date Unknown, Provider, PCP - General 11/30/10 documented as of this encounter
--- OUTSIDE RECORDS SUMMARY | 2022-04-19 01:46 | XMS_ITS | Encounter Summary ---
:1975 Author Organization [facility] Address [address] [place] [address] Care Team Providers Name Role Phone Amber Swanson APRN Primary Care Provider Encounter Details Date Type Department Care Team Description 03/15/2011 Abstract Dermatology Donna Chan, RN [address] [facility] [address] [place], [place] [address] Social History Tobacco Use Types Packs/Day Years Used Date Never Assessed Sex Assigned at Date Recorded Not on file documented as of this encounter Plan of Treatment Not on filedocumented as of this encounter Visit Diagnoses Not on filedocumented in this encounter Care Teams Director Of Manufacturing Operations Relationship Specialty Start Date End Date Amber Swanson APRN PCP - General 10/16/10 06/03/11 [address] [place] [address] documented as of this encounter
--- OUTSIDE RECORDS SUMMARY | 2022-04-19 01:46 | XMS_ITS | Encounter Summary ---
:1975 Author Organization [facility] [place] [address] Care Team Providers Name Role Phone Dulce Case DO Primary Care Provider Reason for Referral Consultation (Routine) - Authorized Specialty Diagnoses / Procedures Referred By Contact Refer red To Contact Ophthalmology Diagnoses Diabetic retinopathy associated with type 2 diabetes mellitus, macular edema presence unspecified, unspecified laterality, unspecified retinopathy severity Dulce Case, [facility] Ophthalmology 4b DO [address] [phone] [place], [place] Phone: [phone] Referral ID Status Reason Start Expiration Visits Visits Date Date Requested Authorized [id number] Authorized Consult, 11/16/2021 11/16/2022 6 6 Test & Treat PCP Updated and/or Approved Encounter Details Date Type Department Care Team Description 11/16/2021 Transcribe Orders eDH Incoming Dennise Case r etinopathy Referrals Dulce Mckeon DO associated with type [phone] [place] [address] 2 diabetes m ellitus, RD macular [place] [address] unspecified, unspecified (Work) laterality, unspecified (Fax) retinopathy sev erity Social History Tobacco Use Types Packs/Day Years Used Date Current Every Day Smoker Cigarettes 0.5 10 Sex Assigned at Date Recorded Not on file documented as of this encounter Plan of Treatment Scheduled Referrals Name Type Priority Associated Order Schedule Diagnoses Referral to Outpatient Referral Routine Diabetic Ordered: Ophthalmology Retinopathy 11/16/2021 Associated With Type 2 Diabetes Mellitus, Macular Edema Presence Unspecified, Unspecified Laterality, Unspecified Retinopathy Severity documented as of this encounter Visit Diagnoses Diagnosis Diabetic retinopathy associated with typ e 2 diabetes mellitus, macular edema presence unspecified, unspecified laterality, uns pecified retinopathy severity documented in this encounter Care Teams Physical Science Professor Relationship Specialty Start Date End Date Dulce Case DO PCP - General Family Medicine 02/08/[address] [place] [address] documented as of this encounter
--- OUTSIDE RECORDS SUMMARY | 2022-04-19 01:46 | XMS_ITS | Encounter Summary ---
:1975 Author Organization [facility] Address [address] [place] [address] Care Team Providers Name Role Phone Unknown, Provider Primary Care Provider Reason for Visit Reason Comments Eye Problem Prior Authorization (STAT) - Authorized Specialty Diagnoses / Procedures Referred By Contact Refer red To Contact Diagnoses PDR (proliferative diabetic retinopathy) ([facility]) ([facility]) Wp5 Ophthalmology Alon Guzman MD Procedures KS INJECT INTRAVITREAL PHARMCOLOGIC KS AFLIBERCEPT INJECTION KS BEVACIZUMAB INJECTION [address] [facility] [address] [place] [address] Phone: Fax: Referral ID Status Reason Start Date Expiration Date Visits V isits Requested Authorized [id number] Authorized 01/29/2022 07/13/2022 6 6 Encounter Details Date Type Department Care Team Description 01/29/2022 Office Visit [facility] Alon Guzman MD Ophthalmology - [address] [phone] (Wo rk) Social History Tobacco Use [...] encounter Progress Notes Alon Guzman MD - 01/29/2022 1015 EDT Chief Complaint Patient presents with ??? Eye Problem Comments ERV: Vitreous hemorrhage of left eye. HPI Location: Left eye Pain: 0 - No pain Quality: Blurry Severity: Severe Duration: Days Timing: Constant Lasts: Continuous Context: ERV: Vitreous hemorrhage of left eye x 2 weeks. Modifying factors: DM Type 2. A1C=5.3 BS are good. Hx of Laser and Hx of Eylea injections to both eyes. Last one in November 2020 Associated Signs & Symptoms: Blurry VA in left eye since last Friday. No flashes. Dark spots now and then left eye. Old floaters right. No pain. Visual Fluctuations: Floaters Attestation: Base Eye Exam Visual Acuity (Snellen - Linear) Right Left Dist cc 20/40 -2 20/800 Dist ph cc NI NI Correction: Glasses Tonometry (Applanation, 10:30) Right Left Pressure 19 17 Pupils Pupils Dark Shape React APD Right PERRL 5 Round Brisk - Left PERRL 5 Round Brisk - Visual Patel Right Left Full Restrictions Total inferior temporal, inferior nasal deficiencies; Partial inner superior temporal,superior nasal deficiencies Extraocular Movement Right Left Full, Ortho Full, Ortho Neuro/Psych Oriented x3: Yes Mood/Affect: Normal Dilation Both eyes: Tropicamide 1%, Phenylephrine 2.5% @ 10:30 Additional Tests Color Right Left Ishihara 15/15 Unable Slit Lamp and Fundus Exam Slit Lamp Exam Right Left Lids/Lashes Normal Conjunctiva/Sclera White and quiet Cornea Clear Anterior Chamber Deep and quiet Deep and quiet, iris strands Iris Round and reactive Lens 2+ Nuclear sclerosis, Cortical cataract Vitreous Vitreous heme Fundus Exam Right Left Disc Old NVD Macula VH Vessels NVE S/T arcade VH Periphery PRP 360 heavy inf and light superior, NVE S/T arcade VH All five layers of the cornea are normal unless otherwise specified. Please refer to large retinal drawing. B-Scan Ultrasound - OS - Left Eye Quality was good. Findings included vitreous hemorrhage. Notes Retina flat Significant VH Intravitreal Injection, Pharmacologic Agent - OS - Left Eye Time Out 01/29/2022. 11:26. Confirmed correct patient, procedure, site, and patient consented. Anesthesia Topical anesthesia was used. Anesthetic medications included Tetracaine 0.5%, Proparacaine 0.5%. Procedure Preparation included eyelid speculum, 5% betadine to ocular surface. A 30 gauge needle was used. Injection: 2 mg aflibercept (EYLEA) intravitreal syringe [facility]: 51907-283-93, Lot: [id number], Expiration date: 09/01/2022 Route: intravitreal, Site: Left Eye Post-op Post injection exam found visual acuity of at least counting fingers. The patient tolerated the procedure well. There were no complications. The patient received written and verbal post procedure care education. Post injection medications were not given. IMPRESSION: 1. Proliferative diabetic retinopathy associated with type 2 diabetes mellitus, macular edema presence unspecified, unspecified laterality ([facility]) ([facility]) INTRAVITREAL INJECTION, PHARMACOLOGIC AGENT - OS - LEFT EYE aflibercept (EYLEA) intravitreal syringe 2 mg 2. Vitreous hemorrhage of left eye ([facility]) ([facility]) B-SCAN ULTRASOUND - OS - LEFT EYE PLAN: Vitreous Hemorrhage left eye bscan of the retina-indication media opacity preventing adequate visualization of the fundus with indirect ophthalmoscopy FINDINGS- Vitreous hemorrhage,no evidence of RD ASSESS- no evidence on Bscan of retinal detachment or mass lesion Plan no retinal detachment surgery or laser surgery for holes or tears based on bscan done today PDR- both eyes Active left eye and NVE rand NEOVASCULARIZATION OF THE DISC right eye Appears to be fibrotic, but pt only has partial PRP right Cannot assess laser left as VH precludes view Recommended to start Anti VEGF injections R + B explained Pt agreed Will do Eylea injection today to left eye Also discussed in detail guarded situation both eyes Even with treatment, pt may progress given what I see has already progressed Pt did not get along with DJW and thus did not follow up Discussed with pt that she must remain compliant with follow ups tanesha right now as she appears to have quite active disease Pt understands Has MUCH better a1c control now which is magaña, but also has been DM for 35 years Discussed in detail importance of control Recommended adding Laser to right eye within couple of weeks since we will be doing injection today left Pt agrees Will schedule Pt counseled that good control of blood sugars , blood pressure and blood lipids as well as abstinence from tobacco has been positively corellated with better outlook for diabetes in general and for the eyes as well and he was encouraged to keep these issues under the best possible control with his en docrinologist or general medical provider Return on Friday for PRP right eye I, Dr. Alon Guzman, have performed my own HPI and reviewed the tech's ROS. I have also reviewed the patient's past medical, family, social and surgical history, as well as the patient's medications, allergies, and problem list. I am scribing for Dr.Brian Sameera Guzman MD while he is personally performing the service. BARRON So (Scribe) documented in this encounter Plan of Treatment Upcoming Encounters Date Type Specialty Care Team Description 04/30/2022 Office Visit Ophthalmology Alon Guzman MD 111 [facility], [facility], [facility] [address] [place], [place] [phone] (Wo rk) 05/28/2022 Office Visit Ophthalmology Alon Guzman MD 111 [facility], [facility], [address] [phone] (Wo rk) documented as of this encounter Procedures Procedure Name Priority Date/Time Associated Diagnosis Comme nts INTRAVITREAL Routine 01/29/2022 12:29 Proliferative Results fo r this INJECTION, EDT diabetic retinopathy procedu re are in PHARMACOLOGIC AGENT - associated with typ e the results OS - LEFT EYE 2 diabetes mellitus, sectio n. macular edema presence unspecified, unspecified laterality ([facility]) ([facility]) B-SCAN ULTRASOUND - Routine 01/29/2022 12:28 Vitreous hemorrha ge Results for this OS - LEFT EYE EDT of left eye ([facility]) proce dure are in ([facility]) the results section. documented in this encounter Results INTRAVITREAL INJECTION, PHARMACOLOGIC AGENT - OS - [...] 2 mg aflibercept (EYLEA) intravitreal sy chandni ??[facility]: 25671-054-64, Lot: [id number], E xpiration date: 09/01/2022 ??Route: intravitreal, Site: Left Eye Post-op Post injection exam found visual acuity of at least counting fingers. The patient tolerated the procedure well. Th ere were no complications. The patient received written and verbal post procedure care education. Post injection medications were not given. Performing Organization Address City/State/ZIP Code Phon e Number [facility] POINT OF CARE B-SCAN ULTRASOUND - OS - LEFT EYE (01/29/2022 12:28 EDT) Specimen Narrative [facility] POINT OF CARE - 01/29/2022 12:28 E DT Quality was good. Findings included vitreous hemorrhage. Notes Retina flat Significant VH Performing Organization Address City/[facility]/ZIP Code Phon e Number [facility] POINT OF CARE documented in this encounter Visit Diagnoses Diagnosis Proliferative diabetic retinopathy assoc iated with type 2 diabetes mellitus, macular edema presence unspecified, unspecified laterality ([facility]) (HCC) - Primary Vitreous hemorrhage of left eye ([facility] ) ([facility]) Vitreous hemorrhage documented in this encounter Administered Medications Inactive Administered Medications - up to 3 most recent administrations Medication Order MAR Action Action Date Dose Rate Site aflibercept (EYLEA) intravitreal Given 01/29/2022 11:17 EDT 2 mg Left Eye syringe 2 mg 2 mg, intravitreal, Starting on Fri01/29/22 at 1117, Until Fri01/29/22 at 1432, Routine documented in this encounter Historical Medications This list may reflect changes made after this encounter. Medication Sig Dispensed Refills Start Date End Date acetaminophen (TYLENOL) 500 Take 1,000 mg by 0 mg tablet mouth as needed for Pain. ibuprofen (MOTRIN) 600 mg Take 600 mg by mouth 0 tablet as needed for Pain. Lutein 10 mg tablet Take by mouth. 0 gabapentin (NEURONTIN) 100 Take 100 mg by mouth 0 mg capsule 3 times daily. cholecalciferol, Vitamin Take 1,000 Units by 0 D3, 25 mcg (1,000 unit) mouth daily. tablet buPROPion (WELLBUTRIN) 100 Take 200 mg by mouth 0 mg tablet 2 times daily. vitamin B cmplex Take 1 Tablet by 0 4-IP-S-biotin (NEPHRO-ALY mouth daily. RX) 1-60-300 mg-mg-mcg tablet multivitamin (NEPHROVITE) Take 1 Tablet by 0 0.8 mg tablet mouth at bedtime. added in this encounter Eye Exam Visual Acuity (Snellen - Linear) Right eye Left eye Dist cc 20/40 -2 20/800 Dist ph cc NI NI Correction: Glasses Tonometry (Applanation, 10:30) Right eye Left eye Pressure 19 17 Pupils Pupils Dark Shape React APD Right eye PERRL 5 Round Brisk - Left eye PERRL 5 Round Brisk - Visual Patel Right eye Left eye Full Restrictions Total inferior tempo ral, inferior nasal deficiencies; Partial inner superior tempo ral, superior nasal deficiencies Extraocular Movement Right eye Left eye Full, Ortho Full, Ortho Neuro/Psych Oriented x3: Yes Mood/Affect: Normal Dilation Both eyes: Tropicamide 1%, Phenylephrine 2.5% @ 10:30 Color Right eye Left eye Ishihara 15/15 Unable Slit Lamp Exam Right eye Left eye Lids/Lashes Normal Conjunctiva/Sclera White and quiet Cornea Clear Anterior Chamber Deep and quiet Deep and quiet, iris strands Iris Round and reactive Lens 2+ Nuclear sclerosis, Cortical cataract Vitreous Vitreous heme Fundus Exam Right eye Left eye Disc Old NVD Macula VH Vessels NVE S/T arcade VH Periphery PRP 360 heavy inf and light superior, NV E S/T arcade VH Care Teams Editing Internship Relationship Specialty Start Date End Date Unknown, Provider, PCP - General 11/30/10 documented as of this encounter
--- OUTSIDE RECORDS SUMMARY | 2022-04-19 01:46 | XMS_ITS | Encounter Summary ---
:1975 Author Organization [facility] Address [address] [place] [address] Care Team Providers Name Role Phone Unknown, Provider Primary Care Provider Encounter Details Date Type Department Care Team Description 07/20/2020 Lab Requisition [facility] Outr Resulting Lab, Pathology & Laboratory Provider [facility] [address] [place], [place] [address] Social History Tobacco Use Types Packs/Day Years Used Date Never Assessed Sex Assigned at Date Recorded Not on file documented as of this encounter Plan of Treatment Upcoming Encounters Date Type Specialty Care Team Description 04/30/2022 Office Visit Ophthalmology Alon Guzman MD 111 [facility], [facility] [place], [facility] 5 [place], [place] [phone] (Wo rk) 05/28/2022 Office Visit Ophthalmology Alon Guzman MD 111 [facility], [place] [address] [phone] (Wo rk) documented as of this encounter Procedures Procedure Name Priority Date/Time Associated Diagnosis Comme nts COVID-19 TEST [facility] Today 07/20/2020 8:50 EST LAB PCR COVID-19 TESTING Routine 07/20/2020 8:50 EST Resu lts for this procedure are i n the results section. documented in this encounter Results COVID-19 TEST [facility] LAB PCR (07/20/2020 8:50 EST) Specimen Swab - Entire nasopharynx (body structur e) Performing Organization Address City/State/ZIP Code Phon e Number [facility] [address] [place] [address] SERVICES COVID-19 TESTING (07/20/2020 8:50 EST) COVID-19 rt-PCR Negative Negative [facility] Result Comment: [facility] This test has not been FDA c leared or approved. This test has been authorized by FDA under an EUA for use by authorized laboratories. This test has been authorized only for detection of nucleic acid fro SERVICES m 2019-nCoV, not for any oth er viruses or pathogens. This test is only authorized for the duration of the declaration that circumstances exist justifying the authorization of emergency use of in vitro d iagnostic tests for detectio n and/or diagnosis of 2019-nCoV under section 564(b)(1) of Act, 21 U.S.C ?? 360bbb-3(b) (1), unless the authorization is terminated or revoked sooner. Negative results do not prec lude 2019-nCoV infection and should not be used as the sole basis for treatment or other patient management decisions. Negative results must be combined with clinical observa tions, patient history, and epidemiological informatio n. Performed on the Lagouher Fusion instrument Performing Lab [place] [facility] Lab [facility] SERVICES Specimen Swab Performing Organization Address City/State/ZIP Code Phon e Number [facility] [address] [place] [address] SERVICES documented in this encounter Visit Diagnoses Not on filedocumented in this encounter Care Teams Carving Machine Operator Relationship Specialty Start Date End Date Unknown, Provider, PCP - General 11/30/10 documented as of this encounter
--- OUTSIDE RECORDS SUMMARY | 2022-04-19 01:46 | XMS_ITS | Clinical Summary ---
:1975 Author Organization [facility] [place] [address] Care Team Providers Name Role Phone Dulce Case Primary Care Provider Allergies No known active allergies Medications Medication Sig Dispensed Refills Start Date End Date Status SERTRALINE HCL (ZOLOFT Take by mouth. 0 Active ORAL) METFORMIN HCL Take by mouth. 0 A ctive (METFORMIN ORAL) multivitamin Take 1 tablet by 0 Active (THERAGRAN) tablet mouth daily. Active Problems Problem Noted Date Hidradenitis suppurativa 03/19/2011 Arthropod bite 03/19/2011 Social History Tobacco Use Types Packs/Day Years Used Date Current Every Day Smoker Cigarettes 0.5 10 Sex Assigned at Date Recorded Not on file Plan of Treatment Health Maintenance Due Date Last Done Comments Covid-19 Vaccine (#1) 1982 HIV screen 1995 Hepatitis C Screening 1995 Tdap adult 1996 Tetanus vaccine 1996 HPV test 2007 PAP Smear 2007 Breast Cancer Share Decision Needed 2017 Influenza (Flu) vaccine (1 of 1 - Influenza standard 03/14/2022 series) Insurance Payer Benefit Plan Subscriber ID Effective Dates Phone Address Type / Group [facility] [employer] [facility] [id number] Effective for [phone] [address] [employer] all dates 3 [facility] [id number] Care Teams Chief Diversity Officer Relationship Specialty Start Date End Date Dulce Case DO PCP - General Family Medicine 02/08/[address] [place], [place] [phone]
--- OUTSIDE RECORDS SUMMARY | 2022-04-19 01:46 | XMS_ITS | Encounter Summary ---
:1975 Author Organization [facility] Address [address] [place] [address] Care Team Providers Name Role Phone Unknown, Provider Primary Care Provider Encounter Details Date Type Department Care Team Description 10/29/2018 Results Only [facility]- Jazz Joshi II, MD [phone] [address] [place], [place] [address] (Wo rk) Social History Tobacco Use Types Packs/Day Years Used Date Never Assessed Sex Assigned at Date Recorded Not on file documented as of this encounter Plan of Treatment Upcoming Encounters Date Type Specialty Care Team Description 04/30/2022 Office Visit Ophthalmology Alon Guzman MD 111 [facility] [place] [address] [phone] (Wo rk) 05/28/2022 Office Visit Ophthalmology Alon Guzamn MD 111 [facility] [place] [address] [phone] (Wo rk) documented as of this encounter Procedures Procedure Name Priority Date/Time Associated Diagnosis Comme nts SURGICAL PATHOLOGY Routine 10/29/2018 22:16 Resul ts for this EDT procedure are i n the results section. documented in this encounter Results SURGICAL PATHOLOGY (10/29/2018 22:16 EDT) Pathology Report: SURGICAL PATHOLOGY REPORT [facility] Reports generated via electronic interface contain tone ginal data; LABORATORY however they are lacking the format of the original re port. SERVICES Caution should be taken when reading/interpreting unfo rmatted reports. Name: ? EBONY SALES ? Accession #: ? [id number] ? : ? 1975 (Age: 6 1) ??F ? Collect Date: ? 10/29/2018 ? Location: ? [facility] ? Receive Date: ? 10/30/19 19 ? Provider: JAZZ MANDUJANO II, MD Copy to: ? Final Pathologic Diagnosis: GALLBLADDER, CHOLECYSTECTOMY: - Chronic cholecystitis and cholelithiasis. Document reviewed and electronically signed by: REJI EMMANUEL MD Report ??Date: 11/03/2018 13:08 By the signature above, the attending physician certif ies that he/she has personally conducted a gross and/or microscopic examin ation of the described specimens and rendered or confirmed the above diagnosi s. Specimen(s) Received: Gallbladder Clinical History: Acute cholecystitis Gross Description: ? Received in formalin labelled with proper patient identification (initials C, G) and gallbladder is a n intact gallbladder (10.0 cm in length x 3.5 cm in diameter) with an attached s egment of cystic duct (1.5 cm in length x 0.6 cm in diameter). A brown firm cyst ic duct lymph node (0.6 x 0.5 x 0.3 cm) is present. ? The serosa is smooth and blue-tripp. The mucosa is velvety, dark green and the wall measures 0.2 cm in thickness. The cystic duct lumen is patent. The cystic duct margin is inked blue. There are four multifaceted gallstones which are mckeon-brown and are dark b lack only on the corners of the choleliths that each measure roughly 1.0 x 1.0 x 1.0 cm. There are also num erous small black spiculated choleliths that m easure 3.0 x 1.5 x 0.2 cm in aggregate. ??Photographs of the four largest choleliths are taken. ? Two equal opportunity representative se ctions of the gallbladder, the inked en face cystic duct margin along with the intact cystic duct node are submitted in 1. NATHALIA Aguiar (ASCP) 10/30/2018 8:57 AM End of Report Specimen Performing Organization Address City/State/ZIP Code Phon e Number [facility] [address] [place] [address] SERVICES documented in this encounter Visit Diagnoses Not on filedocumented in this encounter Care Teams Management Specialist Relationship Specialty Start Date End Date Unknown, Provider, PCP - General 11/30/10 documented as of this encounter
[2022-04-19 09:39] LABS: ALT 46 U/L (14-59); AST 22 U/L (15-37); Albumin 3.8 g/dL (3.4-5.0); Alkaline Phosphatase 47 U/L (46-116); Anion Gap 9.2 mmol/L (3-11); BUN 17 mg/dL (7-18); Bilirubin, Total 0.3 mg/dL (0.2-1.0); CO2 25.8 mmol/L (21.0-32.0); CREATININE 0.8 mg/dL (0.55-1.02); Calcium 8.8 mg/dL (8.5-10.1); Calculated LDL 193 mg/dL (<100); Chloride 102 mmol/L (98-107); Cholesterol 263 mg/dL (<200); Estimated GFR 93.12 (mL/min/1.73m2); Glucose 133 mg/dL (74-106); HDL Cholesterol 54 mg/dL (40-60); Potassium 3.9 mmol/L (3.5-5.1); Sodium 137 mmol/L (136-145); TSH (W/Ref FT4) 0.78 uIU/mL (0.36-3.74); Total Protein 8.2 g/dL (6.4-8.2); Triglyceride 83 mg/dL (<150)
[2022-04-22 04:43] LABS: Vitamin D 25 Total 17.1 ng/mL (30-100)
== END 2022-04-19 01:39 | disposition home or self-care (01) ==
PROVIDERS: PCP Student in an Organized Health Care Education/Training Program; Visit Provider Student in an Organized Health Care Education/Training Program
DX: E11.9 Type 2 diabetes mellitus without complications (principal); E86.0 Dehydration; I10 Essential (primary) hypertension; R20.0 Anesthesia of skin; R20.2 Paresthesia of skin; R77.0 Abnormality of albumin; Z79.1 Long term (current) use of non-steroidal anti-inflammatories (NSAID); R79.89 Other specified abnormal findings of blood chemistry; Z13.220 Encounter for screening for lipoid disorders; E11.43 Type 2 diabetes mellitus with diabetic autonomic (poly)neuropathy; E46 Unspecified protein-calorie malnutrition; E55.9 Vitamin D deficiency, unspecified; K31.84 Gastroparesis; R11.2 Nausea with vomiting, unspecified; R63.4 Abnormal weight loss
CPT/HCPCS: 36415; 80053; 80061; 82306; 84443

== ENCOUNTER 2022-07-25 02:07 | Outpatient (CLI) | payer MEDICAID, SELFPAY ==
--- NOTE | 2022-07-25 13:02 | DI.MAMMO_ITS ---
Exam(s) MAMMO SCREENING EXAM: MAMMO SCREENING CLINICAL HISTORY: screening,z12.39 TECHNIQUE: Bilateral full field digital CC and MLO mammographic images were obtained with 3D tomosyn thesis and utilizing computer aided detection (CAD). COMPARISON: Available for comparison. FINDINGS: Masses/Architectural Distortion: None seen. Microcalcifications: No suspicious pleomorphic-type are seen. Skin Thickening/Nipple Retraction: None. IMPRESSION: 1. No significant interval change with no specific features of malignancy noted. 2. Unless there is more urgent need, screening mammography is recommended, as per [place] guidelines. BI-RADS Category 1 - Negative Breast Density - Category B - Scattered areas of fibroglandular density Breast density category C or D implies that the patient has dense breast tissue. Dense breast tissue is very common and is not abnormal but dense breast tissue can make it harder to find cancer on a ma mmogram. Also, dense breast tissue may increase their breast cancer risk. This information about the result of the mammogram report was provided to the patient to raise their awareness. Use this report when you speak with the patient about their risks for breast cancer, which includes their family hist ory. At that time, you may recommend for more screening tests (Ultrasound or MRI) as they might be us eful based on their risk. A negative radiographic report should not delay biopsy if a dominant or clinically suspicious mass is present. Up to ten percent of cancers are not identified on mammography. A negative report may reinforce clinical impression. Adenosis and dense breasts may obscure an underlying neoplasm. False positive reports average 6 to 10%. Patient will receive a letter notifying them of these results.
== END 2022-07-25 02:27 ==
PROVIDERS: PCP Student in an Organized Health Care Education/Training Program; Visit Provider Student in an Organized Health Care Education/Training Program
DX: Z12.31 Encounter for screening mammogram for malignant neoplasm of breast (principal)
CPT/HCPCS: 77063; 77067

== ENCOUNTER 2022-10-18 00:15 | Outpatient (CLI) | payer MEDICAID, SELFPAY ==
--- NOTE | 2022-10-18 07:45 | DI.RAD_ITS ---
Exam(s) XR HAND LT COMPLETE EXAM: XR HAND LT COMPLETE CLINICAL HISTORY: LT THUMB PAIN, M79.646, EVAL JOINT SPACE,? BONY PATHOLOGY. TECHNIQUE: 2D digital imaging was performed of the left hand. Three views were obtained. AP, later al and oblique views were obtained. COMPARISON: No exams were available for comparison FINDINGS: BONES: No acute fracture is present. No bony destructive lesion is seen. The bones are normally appeals examiner alized. JOINTS: No dislocation present. There are small subchondral cysts seen at the PIP joints of the 3rd a nd 4th fingers. No erosions are seen. The joints of the thumb are all well maintained. No bony hyp ertrophy or joint space narrowing is seen. SOFT TISSUE: The soft tissues are unremarkable. IMPRESSION: Unremarkable left thumb. DATA REPOSITORY: RADIATION DOSE DELIVERED:
--- NOTE | 2022-10-18 07:45 | DI.RAD_ITS ---
Exam(s) XR HAND RT COMPLETE EXAM: XR HAND RT COMPLETE CLINICAL HISTORY: RT FINGER PAIN,TRIGGER FINGER,EVAL JOINT SPACE, ? BONY PATHOLOGY. TECHNIQUE: 2D digital imaging was performed of the right hand. Three images were obtained. AP, late ral and oblique views were obtained. COMPARISON: No priors for comparison. FINDINGS: BONES: No acute fracture is present. No bony destructive lesion is seen. JOINTS: No dislocation present. SOFT TISSUE: Normal. IMPRESSION: Unremarkable radiographs of the right hand. DATA REPOSITORY: RADIATION DOSE DELIVERED:
--- NOTE | 2022-10-18 07:45 | DI.US_ITS ---
Exam(s) US THYROID EXAM: US THYROID CLINICAL HISTORY: re-evaluate nodule seen in 2019,elevated tsh,r79.89,e04.1. TECHNIQUE: Ultrasound thyroid performed using standard protocol. COMPARISON: No exams were available for comparison. If there is a prior examination, it be submitte d and an addendum will be issued. FINDINGS: ISTHMUS: 1.2 mm. There is a 1.7 x 1.1 x 1.4 cm solid isoechoic mass in the isthmus. The margins are smooth and no echogenic foci are seen. This is consistent with a TI rads level 3 nodule. Due to it s size, follow-up is recommended. RIGHT LOBE: Size: 6.6 x 2.0 x 2.8 cm Echogenicity: Normal. Vascularity: Normal. Nodules: None. LEFT LOBE: Size: 9.2 x 2.8 x 4.2 cm Echogenicity: Normal. Vascularity: Normal. Nodules: There is a 7.8 x 4.0 x 6.1 predominantly solid isoechoic nodule. There are smooth margins a nd and macrocalcifications noted. The findings are consistent with a TI rads level 4 nodule. Due to its size, FNA is recommended. OTHER FINDINGS: None. IMPRESSION: TI rads level 4 nodule in the left lobe. Due to its size, FNA is recommended. Please correlate with patient's prior thyroid history. DATA REPOSITORY:
== END 2022-10-18 00:35 ==
LOC: DI 00:16
PROVIDERS: PCP Student in an Organized Health Care Education/Training Program; Visit Provider Student in an Organized Health Care Education/Training Program
DX: M79.644 Pain in right finger(s); Z12.39 Encounter for other screening for malignant neoplasm of breast; R94.6 Abnormal results of thyroid function studies
CPT/HCPCS: 73130; 76536

== ENCOUNTER 2022-11-12 06:19 | Day surgery (SDC) | payer MEDICAID, SELFPAY ==
--- NOTE | 2022-11-11 18:10 | W.ANESPRE ---
General Info Date of Service Date Performed: 11/12/22 Height: 5 ft 7 in Weight: 101.151 kg Body Mass Index (BMI): 34.9 Surgical Procedure: Operation Date: 11/12/22 07:40 Proposed Procedure Side Surgeon p Wrist ECTR Left Tim Vasquez MD Meds Allergies and Home Medications Allergies Allergy/AdvReac Type Severity Reaction Status Date / Time nicotine [From Nicotrol] AdvReac Intermediate throat Verified 11/12/22 06:41 burning Home Medication Medication Instructions Recorded varenicline 0.5 mg (11)-1 mg (42) See Rx Instructions PO PER PKG DIR 06/21/20 tablets in a dose pack (Chantix Starting Month Box) varenicline 1 mg tablet (Chantix 1 mg PO BID 06/21/20 Continuing Month Box) vitamin B comp and C no.3 15 mg-10 1 cap PO DAILY 06/22/20 mg-50 mg-5 mg-300 mg capsule (B Complex Plus Vitamin C) One Touch Verio #1 ea 03/20/21 lancing device with lancets kit #1 ea 03/20/21 (OneTouch Delica Plus Lancing Device kit) magnesium oxide 400 mg PO QHS #90 tabs 10/25/21 cholecalciferol (vitamin D3) 25 25 mcg PO DAILY 01/24/22 mcg (1,000 unit) capsule lutein 10 mg tablet 20 mg PO DAILY 01/24/22 diphenhydramine 25 1 tab PO QHS PRN 02/20/22 mg-acetaminophen 500 mg tablet (Tylenol PM Extra Strength) blood sugar diagnostic (Billboard JungleTouch #100 ea 04/07/22 Verio test strips) ibuprofen 600 mg tablet 600 mg PO BID #180 tabs 07/17/22 bupropion HCl 200 mg tablet,12 hr 400 mg PO DAILY smoking 08/30/22 sustained-release (Wellbutrin SR) cessation/depression #1 tab lancets 33 gauge (Billboard JungleTouch Delica #100 ea 09/09/22 Plus Lancet) diazepam 2 mg tablet 2 mg PO TID PRN muscle spasm; 11/08/22 procedural anxiety #20 tabs gabapentin 100 mg capsule 200 mg PO BID #120 caps 11/08/22 gabapentin 300 mg capsule 900 mg PO QHS #270 caps 11/08/22 oxycodone 10 mg tablet 10 mg PO BID PRN pain #10 tabs 11/08/22 propranolol 20 mg tablet 20 mg PO TID #30 tabs 11/08/22 sertraline 50 mg tablet 50 mg PO QHS #90 tabs 11/08/22 acetaminophen 500 mg tablet 500 mg PO Q6H PRN PRN pain #40 tabs 11/12/22 hydrocodone 5 mg-acetaminophen 325 1 tab PO Q6H PRN pain #5 tabs 11/12/22 mg tablet Current Visit Medications: Current Medications Generic Name Dose Route Start Last Admin Trade Name Freq PRN Reason Stop Dose Admin Ringer's Solution 1,000 mls @ 80 mls/hr 11/12/22 06:00 IV 12/11/22 23:59 INFUSION SIMRAN Cefazolin Sodium/Dextrose 2 gm in 50 mls @ 100 mls/hr 11/12/22 06:00 Ancef Duplex IVPB 11/12/22 16:00 PREOP SIMRAN IV Miscellaneous Supplies 1 each 11/12/22 06:00 Iv Access IV 12/11/22 23:59 DIRECTED SIMRAN Sodium Chloride 0 ml 11/12/22 06:00 Normal Saline Flush 10 Ml Syr IV 12/11/22 23:59 PRN PRN Sodium Chloride 0 ml 11/12/22 06:00 Normal Saline 10 Ml Vial IJ 12/11/22 23:59 DIRECTED PRN Sterile Water 0 ml 11/12/22 06:00 Water,Injection,Sterile 10 Ml Vial IJ 12/11/22 23:59 DIRECTED PRN PFSH Active Problems Active Problems: Problem Status Onset Code Trigger finger of right hand M65.30 Thumb pain M79.646 Finger pain, right M79.644 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.9 Cubital tunnel syndrome, bilateral G56.23 Bilateral carpal tunnel syndrome G56.03 Vitreous hemorrhage, right eye H43.11 Vitreous hemorrhage, left eye H43.12 Thyroid nodule E04.1 Numbness and tingling in both hands R20.0, R20.2 NSAID long-term use Z79.1 Low TSH level R79.89 PMS (premenstrual syndrome) N94.3 Perimenopausal symptoms N95.1 Elevated TSH R79.89 History of eye trauma Z87.828 Hx of bad fall Z91.81 Hx of neck injury Z87.828 Medication intolerance Z78.9 Nausea & vomiting R11.2 DM gastroparesis E11.43, K31.84 Neuropathy G62.9 Diabetic retinopathy E11.319 Type 2 diabetes mellitus E11.9 Acute right flank pain R10.9 Poor sleep Z72.820 Caregiver stress Z63.6 Hx of concussion Z87.820 Abnormal ophthalmologic exam Z01.01 Tobacco use Z72.0 Single parent Weight loss, intentional Hx of hidradenitis suppurativa Z87.2 Pilonidal cyst with abscess L05.01 Abscess of abdominal wall L02.211 Hypertension I10 Depression F32.9 Medical History Medical History Hyperlipemia Hypertrophy of clitoris Surgical History Surgical History History of delivery History of laparoscopic cholecystectomy History of tooth extraction History of umbilical hernia repair Tobacco Smoking/Tobacco Use Status: Current every day Tobacco Type: cigarettes Smoking cigarettes per day: 2 Alcohol Alcohol Intake: former Substance Use Substance use: Daily Substance use type: marijuana Vital Signs and Lab Results Vital Signs Most Recent Vital Signs in EMR: Temp Pulse Resp BP Pulse Ox 36.4 C L 90 16 112/86 100 11/12/22 06:45 11/12/22 06:45 11/12/22 06:45 11/12/22 06:45 11/12/22 06:45 Lab Results Blood Type / Crossmatch: No Data to Display Complete Blood Count: No Data to Display Complete Metabolic Panel: Hemoglobin A1c 5.5 % (4.5-5.7) 11/08/22 11:05 Liver Function Panel: No Data to Display Coagulation Panel: No Data to Display Cardiac Panel: No Data to Display Arterial Blood Gas: No Data to Display Venous Blood Gas: No Data to Display Pancreas Panel: No Data to Display Thyroid Panel: No Data to Display Infectious Disease: No Data to Display Blood Cultures: No Data to Display Toxicology Panel: No Data to Display Panel: No Data to Display Anesthesia Assessment and Plan Anesthesia History Personal History: No History of Anesthesia Complications Family History: No Family History of Anesthesia Complications Exercise Tolerance Exercise Tolerance: Metabolic Equivalents>4 Cardiac & Pulmonary Exam Cardiac Exam: Normal S1/S2 Heart Sounds Pulmonary Exam: Clear Bilateral Breath Sounds Implantable Cardiac Device Does patient have a Pacemaker or an ICD?: No Airway Exam Known Difficult Airway: No Mallampati Class: 4 Mouth Opening: Normal (> 3cm) Thyromental Distance: Greater than 3 cm Neck Range of Motion: Full ROM Neck Circumference: Normal Teeth Condition: Removable Dentures/Plates Upper and Removable Dentures/Plates Lower ASA Classification ASA Score: ASA 2 Emergency Case?: No NPO Status NPO Status: NPO Clears >2 hours, Solids >8 hours Status Status: Not Per Patient Anesthesia Plan Resuscitation Status: Full Code Anesthesia Technique: General Anesthesia Airway Planned: Natural Airway Monitors Used: Standard Monitors Preoperative Comments:: 47 yo female for ECTR. Sig PMHx: anxiety/depression, DM, HTN, daily cannabis. thyroid nodule, being followed by PCP.
[2022-11-12 06:45] VITALS: BP 112/86; PULSE 90; RESP 16; TEMP 36.4; O2SAT 100
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
--- NOTE | 2022-11-12 06:55 | PDOC.DSDIS_ITS ---
Date of service: 11/12/22 Time of Service: 06:56 Discharge Plan Disposition Patient Disposition: Home Condition: Good Discharge Details Attending Provider: Tim Vasquez Primary Care Provider: Dulec Case Home Meds and New Rx's Prescriptions: New acetaminophen 500 mg tablet 500 mg PO Q6H PRN PRN (Reason: pain) Qty: 40 3RF hydrocodone-acetaminophen 5-325 mg tablet 1 tab PO Q6H PRN (Reason: pain) Qty: 5 0RF Continued magnesium oxide 400 mg magnesium tablet 400 mg PO QHS Qty: 90 3RF diphenhydramine-acetaminophen [Tylenol PM Extra Strength] 25-500 mg tablet 1 tab PO QHS PRN Chantix Starting Month Box 0.5 mg (11)- 1 mg (42) tablets,dose pack See Rx Instructions PO PER PKG DIR Hold Instructions: Home Medication placed on hold at Doctor's office Rx Instructions: PO PER PKG DIR Chantix Continuing Month Box 1 mg tablet 1 mg PO BID Hold Instructions: Home Medication placed on hold at Doctor's office B Complex Plus Vitamin C 38-48-82-5-300 mg capsule 1 cap PO DAILY Rx Instructions: give with food (meal/snack) (DME) One Touch Verio See Rx Instructions .Route .MEDSUPPLY Qty: 1 0RF Rx Instructions: As directed to monitor blood glucose daily, for A1C < 7 (DME) lancing device with lancets [OneTouch Delica Plus Lanc Dev] Kit See Rx Instructions .ROUTE .MEDSUPPLY Qty: 1 0RF Rx Instructions: As directed lutein 10 mg tablet 20 mg PO DAILY Rx Instructions: give with meal/snack cholecalciferol (vitamin D3) 25 mcg (1,000 unit) capsule 25 mcg PO DAILY bupropion HCl [Wellbutrin SR] 200 mg tablet sustained-release 12 hr 400 mg PO DAILY Qty: 1 0RF Rx Instructions: CAN WE CHANGE THIS TO ER??? gabapentin 300 mg capsule 900 mg PO QHS Qty: 270 3RF gabapentin 100 mg capsule 200 mg PO BID Qty: 120 3RF Rx Instructions: Continue daytime use, am/noon. propranolol 20 mg tablet 20 mg PO TID Qty: 30 1RF Rx Instructions: Trial for EYE PROCEDURES only. Hold Clonidine. diazepam 2 mg tablet 2 mg PO TID PRN (Reason: muscle spasm; procedural anxiety) Qty: 20 1RF Rx Instructions: Continue for EYE PROCEDURE. (1) in am/then (2) @ office (pre-procedure). sertraline 50 mg tablet 50 mg PO QHS Qty: 90 3RF Rx Instructions: Increase, with goal 75mg oxycodone 10 mg tablet 10 mg PO BID MDD 20mg PRN (Reason: pain) Qty: 10 0RF Rx Instructions: Trial for severe hand pain, 1/2 tab in daytime (DME) OneTouch Verio test strips Strip See Rx Instructions .ROUTE .MEDSUPPLY Qty: 100 3RF Rx Instructions: QD ibuprofen 600 mg tablet 600 mg PO BID Qty: 180 1RF Rx Instructions: Inflammation (DME) lancets [OneTouch Delica Plus Lancet] 33 gauge misc See Rx Instructions .ROUTE .MEDSUPPLY Qty: 100 3RF Rx Instructions: once daily Discharge Instructions Additional Instructions: Use Tylenol and Ibuprofen for baseline control. Hydrocodone for breakthrough pain. Stand Alone Forms: Pedro Arana Tunnel Release Referrals: Tim Vasquez MD [ [facility] STAFF PHYSICIAN] - Activity:: Elevate Remove Dressings/Wound Care:: 48 hours Shower/Bathe:: 48 hours Diet:: As Tolerated Discharge Orders Discharge Orders: Discharge Order (Routine); Ordered 11/12/22 Ordered By: Tim Vasquez DS: Diagnosis Discharge Diagnosis (1) Cubital tunnel syndrome, bilateral: Status: Acute
[2022-11-12] MEDS: Lactated Ringers 1,000 ML 80 ML IV (07:05)
[2022-11-12 07:12] VITALS: BMI 34.9
[2022-11-12] MEDS: Lidocaine 1% Pres-Free W/EPI 1/200,000 10 ML VIAL (07:39)
[2022-11-12 07:43] VITALS: BP 93/63; PULSE 80; RESP 16; TEMP 36.2; O2SAT 98
--- NOTE | 2022-11-12 07:46 | ROE_ITS ---
Date of service: 11/12/22 Time of Service: 07:46 Operative Note Operative Note DATE OF PROCEDURE: 11/12/22 PRE-OP DIAGNOSIS: Left Carpal Tunnel Syndrome POST-OP DIAGNOSIS: same PROCEDURE: Left Endoscopic Carpal Tunnel Release SURGEON: Tim Vasquez ANESTHESIA TYPE: General:No Airway Refer to Anesthesia Record ESTIMATED BLOOD LOSS: 0 PATHOLOGY: none sent TOURNIQUET TIME: 4 COMPLICATIONS: None Patient was transported to: same day Patient's condition: stable Indications: I have seen Ebony in clinic for symptoms of carpal tunnel syndrome. The numbness, tingling, and pain limited function. Clinical exam findings with nerve conduction tests confirmed the diagnosis of carpal tunnel syndrome. Nonoperative measures such as bracing, time, activity modifications had been tried but disability and pain persisted. I discussed carpal tunnel release with the patient. I reviewed the risks of the procedure to include, but not limited to, bleeding, infection, pain, stiffness, incomplete release, damage to nerves or vessels, persistent numbness, recurrence. Despite these risks, the patient elected to proceed. Findings: There was tightened carpal tunnel. This was dilated and released successfully with the endoscopic with increased space within the tunnel. The antebrachial fascia was released proximally freeing the median nerve at the wrist. Procedure Description: Ebony was greeted in the preoperative holding area where the correct side was identified and marked. The consent was reviewed with the patient and signed. The history and physical was updated. All questions were answered. She was taken back to the operating room. The patient was placed into the supine position on the operating room table with the left arm on an arm board. A nonsterile tourniquet was placed high onto the arm. All bony prominences were well padded. Prophylactic antibiotics in the form of Cefazolin were administered. The left arm was then prepped with Chloraprep and draped in a standard fashion with stockinette and extremity drape. A timeout to confirm correct identity, side and site, procedure, allergies, anesthesia, and medical concerns was performed. The surgical site was marked in the volar wrist creases in line with the radial border of the fourth ray. This area was anesthetized with approximately 6cc of 1% Lidocaine. The limb was then exsanguinated with an Esmarch. The skin was incised with a 15 blade, approximately 1cm. The skin only was cut and the deeper tissue was dissected bluntly with a tenotomy scissor, avoiding passing nerve and venous structures. The fascia was penetrated and opened bluntly. A two-prong skin hook was placed under this proximal fascial edge. A series of hamate finders were used to identify and dilate the carpal tunnel. Synovial elevator was used to free synovial attachments to the underside of the transverse carpal ligament. My thumb was kept in the palm to nacho the distal extent of the carpal tunnel and correctly position the hand. The Microaire endoscope was inserted without difficulty and without resistance. Excellent visualization showed horizontally running fibers of the transverse carpal ligament (TCL). The distal extent of the TCL was visualized and the end of the scope palpated with the thumb. The blade was elevated and withdrawn from distal to proximal. The TCL was split into two flaps. The endoscope was reinserted to confirm complete release and any remnant ligament was incised. The scope was withdrawn and the proximal aspect of the carpal tunnel was grossly inspected and appeared release with the median nerve visible. The antebrachial fascia at the level of the wrist was then freed from the overlying skin and then the underlying median nerve with blunt dissection. This was transected longitudinally for about 3cm proximal to the wrist incision. The wound was then irrigated with easy flow of irrigant distally and proximally. The incision was closed with a single 4-0 Nylon suture. The wound was dressed w ith Xeroform, Gauze, Kerlix and Suhas. The tourniquet was deflated with the initial dressing and held with some pressure. Blood flow returned easily to all digits with capillary refill less than 2 seconds. The patient tolerated the procedure well and was returned to the Same Day Surgery area in a stable condition suffering no known complication.
--- NOTE | 2022-11-12 08:14 | W.ANESPOSTOP ---
Postoperative Evaluation Date, Time and Location Date Performed: 11/12/22 Time Performed: 07:45 Patient Location: Day Surgery Unit Vital Signs Most Recent Imported Vital Signs: Most Recent Vital Signs Temp Pulse Resp BP Pulse Ox 36.2 C L 80 16 93/63 L 98 11/12/22 07:43 11/12/22 07:43 11/12/22 07:43 11/12/22 07:43 11/12/22 07:43 Pain Score Most Recent Pain Score: Most Recent Pain Score Pain Level 0 11/12/22 07:43 Assessment Mental Status: Arousable with meaningful communication Airway and Respiratory Function: Patent airway with normal (patient baseline) respiratory exam Cardiovascular Function: Hemodynamically Stable Hydration Status: Adequately Hydrated Nausea & Vomiting: No Nausea or Vomiting Pain: Pt. Denies Any Pain Peripheral Nerve Block: Patient did not receive a nerve block Postoperative Comments:: VSS, no isses.
[2022-11-12 08:20] VITALS: BP 121/67; PULSE 88; RESP 16; TEMP 36.2; O2SAT 100
== END 2022-11-12 08:27 | disposition home or self-care (01) ==
PROVIDERS: PCP Student in an Organized Health Care Education/Training Program; Visit Provider Student in an Organized Health Care Education/Training Program
PROC: 01N54ZZ Release Median Nerve, Percutaneous Endoscopic Approach (ICD-10-PCS; CPT 29848; principal; 2022-11-12 07:30)
DX: G56.23 Lesion of ulnar nerve, bilateral upper limbs (principal)
CPT/HCPCS: 29848; J0690; J1885; J2250; J2405; J2704; J3010

== ENCOUNTER 2022-12-10 06:11 | Day surgery (SDC) | payer MEDICAID, SELFPAY ==
[2022-12-10 06:15] VITALS: BP 117/79; PULSE 84; RESP 18; TEMP 36.4; O2SAT 100
[2022-12-10] MEDS: Lactated Ringers 1,000 ML 80 ML IV (06:43)
--- NOTE | 2022-12-10 06:54 | W.ANESPRE ---
General Info Date of Service Date Performed: 12/10/22 Height: 5 ft 7 in Weight: 101.1 kg Body Mass Index (BMI): 34.9 Surgical Procedure: Operation Date: 12/10/22 07:40 Proposed Procedure Side Surgeon p Wrist ECTR Right Tim Vasquez MD Meds Allergies and Home Medications Allergies Allergy/AdvReac Type Severity Reaction Status Date / Time nicotine [From Nicotrol] AdvReac Intermediate throat Verified 12/06/22 09:35 burning Home Medication Medication Instructions Recorded varenicline 0.5 mg (11)-1 mg (42) See Rx Instructions PO PER PKG DIR 06/21/20 tablets in a dose pack (Chantix Starting Month Box) varenicline 1 mg tablet (Chantix 1 mg PO BID 06/21/20 Continuing Month Box) vitamin B comp and C no.3 15 mg-10 1 cap PO DAILY 06/22/20 mg-50 mg-5 mg-300 mg capsule (B Complex Plus Vitamin C) One Touch Verio #1 ea 03/20/21 lancing device with lancets kit #1 ea 03/20/21 (OneTouch Delica Plus Lancing Device kit) magnesium oxide 400 mg PO QHS #90 tabs 10/25/21 cholecalciferol (vitamin D3) 25 25 mcg PO DAILY 01/24/22 mcg (1,000 unit) capsule lutein 10 mg tablet 20 mg PO DAILY 01/24/22 diphenhydramine 25 1 tab PO QHS PRN 02/20/22 mg-acetaminophen 500 mg tablet (Tylenol PM Extra Strength) blood sugar diagnostic (OneTouch #100 ea 04/07/22 Verio test strips) ibuprofen 600 mg tablet 600 mg PO BID #180 tabs 07/17/22 lancets 33 gauge (OneTouch Delica #100 ea 09/09/22 Plus Lancet) diazepam 2 mg tablet 2 mg PO TID PRN muscle spasm; 11/08/22 procedural anxiety #20 tabs gabapentin 100 mg capsule 200 mg PO BID #120 caps 11/08/22 oxycodone 10 mg tablet 10 mg PO BID PRN pain #10 tabs 11/08/22 propranolol 20 mg tablet 20 mg PO TID #30 tabs 11/08/22 sertraline 50 mg tablet 50 mg PO QHS #90 tabs 11/08/22 bupropion HCl 200 mg tablet,12 hr 400 mg PO DAILY smoking 11/28/22 sustained-release (Wellbutrin SR) cessation/depression #1 tab gabapentin 300 mg capsule See Rx Instructions PO DAILY #360 11/28/22 caps bupropion HCl 150 mg 24 hr tablet, 150 mg PO QAM #30 tabs 12/02/22 extended release bupropion HCl 300 mg 24 hr tablet, 300 mg PO QAM #30 tabs 12/02/22 extended release acetaminophen 500 mg tablet 500 mg PO Q6H PRN PRN pain #40 tabs 12/10/22 hydrocodone 5 mg-acetaminophen 325 1 tab PO Q6H PRN pain #8 tabs 12/10/22 mg tablet Current Visit Medications: Current Medications Generic Name Dose Route Start Last Admin Trade Name Freq PRN Reason Stop Dose Admin Ringer's Solution 1,000 mls @ 80 mls/hr 12/10/22 06:00 12/10/22 06:43 IV 01/05/23 23:59 80 mls/hr INFUSION SIMRAN Administration Cefazolin Sodium/Dextrose 2 gm in 50 mls @ 100 mls/hr 12/10/22 06:00 Ancef Duplex IVPB 12/10/22 16:00 PREOP SIMRAN IV Miscellaneous Supplies 1 each 12/10/22 06:00 Iv Access IV 01/05/23 23:59 DIRECTED SIMRAN Sodium Chloride 0 ml 12/10/22 06:00 Normal Saline Flush 10 Ml Syr IV 01/05/23 23:59 PRN PRN Sodium Chloride 0 ml 12/10/22 06:00 Normal Saline 10 Ml Vial IJ 01/05/23 23:59 DIRECTED PRN Sterile Water 0 ml 12/10/22 06:00 Water,Injection,Sterile 10 Ml Vial IJ 01/05/23 23:59 DIRECTED PRN PFSH Active Problems Active Problems: Problem Status Onset Code Depression F32.9 Hypertension I10 Abscess of abdominal wall L02.211 Pilonidal cyst with abscess L05.01 Hx of hidradenitis suppurativa Z87.2 Weight loss, intentional Single parent Tobacco use Z72.0 Abnormal ophthalmologic exam Z01.01 Hx of concussion Z87.820 Caregiver stress Z63.6 Low TSH level R79.89 Poor sleep Z72.820 Acute right flank pain R10.9 Type 2 diabetes mellitus E11.9 Diabetic retinopathy E11.319 Neuropathy G62.9 DM gastroparesis E11.43, K31.84 Nausea & vomiting R11.2 Medication intolerance Z78.9 Hx of neck injury Z87.828 Hx of bad fall Z91.81 History of eye trauma Z87.828 Elevated TSH R79.89 NSAID long-term use Z79.1 Perimenopausal symptoms N95.1 PMS (premenstrual syndrome) N94.3 Numbness and tingling in both hands R20.0, R20.2 Thyroid nodule E04.1 Vitreous hemorrhage, left eye H43.12 Vitreous hemorrhage, right eye H43.11 Bilateral carpal tunnel syndrome G56.03 Cubital tunnel syndrome, bilateral G56.23 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 Surgical History Surgical History (Updated 12/10/22 @ 06:25 by Peggy Gallo) History of carpal tunnel release History of delivery History of laparoscopic cholecystectomy History of tooth extraction History of umbilical hernia repair Tobacco Smoking/Tobacco Use Status: Current every day Tobacco Type: cigarettes Smoking cigarettes per day: 2 Alcohol Alcohol Intake: former Substance Use Substance use: Daily Substance use type: marijuana Details: last use of marijuana 12/09 inhaled Vital Signs and Lab Results Vital Signs Most Recent Vital Signs in EMR: Most Recent Vital Signs Temp Pulse Resp BP Pulse Ox 36.4 C L 84 18 117/79 100 12/10/22 06:15 12/10/22 06:15 12/10/22 06:15 12/10/22 06:15 12/10/22 06:15 Lab Results Blood Type / Crossmatch: No Data to Display Complete Blood Count: No Data to Display Complete Metabolic Panel: No Data to Display Liver Function Panel: No Data to Display Coagulation Panel: No Data to Display Cardiac Panel: No Data to Display Arterial Blood Gas: No Data to Display Venous Blood Gas: No Data to Display Pancreas Panel: No Data to Display Thyroid Panel: No Data to Display Infectious Disease: No Data to Display Blood Cultures: No Data to Display Toxicology Panel: No Data to Display Panel: No Data to Display Anesthesia Assessment and Plan Anesthesia History Personal History: No History of Anesthesia Complications Family History: No Family History of Anesthesia Complications Exercise Tolerance Exercise Tolerance: Metabolic Equivalents>4 Pertinent Negatives Pertinent Negatives: No Symptoms of GERD, No Major Cardiovascular Symptoms or Complaints, No Major Pulmonary Symptoms or Complaints and No History of CVA/TIA Cardiac & Pulmonary Exam Cardiac Exam: Normal S1/S2 Heart Sounds Pulmonary Exam: Clear Bilateral Breath Sounds Implantable Cardiac Device Does patient have a Pacemaker or an ICD?: No Airway Exam Known Difficult Airway: No Mallampati Class: 4 Mouth Opening: Normal (> 3cm) Thyromental Distance: Greater than 3 cm Neck Range of Motion: Full ROM Neck Circumference: Normal Teeth Condition: Removable Dentures/Plates Upper ASA Classification ASA Score: ASA 2 Emergency Case?: No NPO Status NPO Status: NPO Clears >2 hours, Solids >8 hours Status Status: Pt. refuses testing, she was counseled on anesthesia risks Anesthesia Plan Resuscitation Status: Full Code Anesthesia Technique: General Anesthesia Airway Planned: Natural Airway Monitors Used: Standard Monitors Preoperative Comments:: Patient waived test after discussion of risks.
--- NOTE | 2022-12-10 07:04 | W.PM.DSUDISC ---
Date of service: 12/10/22 Time of Service: 07:05 Discharge Plan Disposition Patient Disposition: Home Condition: Good Discharge Details Reason For Visit: Right Carpal Tunnel Syndrome Attending Provider: Tim Vasquez Primary Care Provider: Dulce Case Home Meds and New Rx's Prescriptions: New hydrocodone-acetaminophen 5-325 mg tablet 1 tab PO Q6H PRN (Reason: pain) Qty: 8 0RF Continued magnesium oxide 400 mg magnesium tablet 400 mg PO QHS Qty: 90 3RF diphenhydramine-acetaminophen [Tylenol PM Extra Strength] 25-500 mg tablet 1 tab PO QHS PRN Chantix Starting Month Box 0.5 mg (11)- 1 mg (42) tablets,dose pack See Rx Instructions PO PER PKG DIR Hold Instructions: Home Medication placed on hold at Doctor's office Rx Instructions: PO PER PKG DIR Chantix Continuing Month Box 1 mg tablet 1 mg PO BID Hold Instructions: Home Medication placed on hold at Doctor's office B Complex Plus Vitamin C [id number] mg capsule 1 cap PO DAILY Rx Instructions: give with food (meal/snack) (DME) One Touch Verio See Rx Instructions .Route .MEDSUPPLY Qty: 1 0RF Rx Instructions: As directed to monitor blood glucose daily, for A1C < 7 (DME) lancing device with lancets [OneTouch Delica Plus Lanc Dev] Kit See Rx Instructions .ROUTE .MEDSUPPLY Qty: 1 0RF Rx Instructions: As directed lutein 10 mg tablet 20 mg PO DAILY Rx Instructions: give with meal/snack cholecalciferol (vitamin D3) 25 mcg (1,000 unit) capsule 25 mcg PO DAILY gabapentin 100 mg capsule 200 mg PO BID Qty: 120 3RF Hold Instructions: Changed by Provider Rx Instructions: Continue daytime use, am/noon. propranolol 20 mg tablet 20 mg PO TID Qty: 30 1RF Rx Instructions: Trial for EYE PROCEDURES only. Hold Clonidine. diazepam 2 mg tablet 2 mg PO TID PRN (Reason: muscle spasm; procedural anxiety) Qty: 20 1RF Rx Instructions: Continue for EYE PROCEDURE. (1) in am/then (2) @ office (pre-procedure). sertraline 50 mg tablet 50 mg PO QHS Qty: 90 3RF Rx Instructions: Increase, with goal 75mg oxycodone 10 mg tablet 10 mg PO BID MDD 20mg PRN (Reason: pain) Qty: 10 0RF Rx Instructions: Trial for severe hand pain, 1/2 tab in daytime (DME) OneTouch Verio test strips Strip See Rx Instructions .ROUTE .MEDSUPPLY Qty: 100 3RF Rx Instructions: QD ibuprofen 600 mg tablet 600 mg PO BID Qty: 180 1RF Rx Instructions: Inflammation (DME) lancets [OneTouch Delica Plus Lancet] 33 gauge misc See Rx Instructions .ROUTE .MEDSUPPLY Qty: 100 3RF Rx Instructions: once daily bupropion HCl [Wellbutrin SR] 200 mg tablet sustained-release 12 hr 400 mg PO DAILY Qty: 1 0RF Rx Instructions: CAN WE CHANGE THIS TO ER??? gabapentin 300 mg capsule See Rx Instructions PO DAILY Qty: 360 3RF Rx Instructions: 1200 Daily: 300mg in AM & 900 mg qHS orally daily; bupropion HCl 300 mg tablet extended release 24 hr 300 mg PO QAM MDD 450 Qty: 30 1RF Rx Instructions: Trial inc ER bupropion HCl 150 mg tablet extended release 24 hr 150 mg PO QAM MDD 450 Qty: 30 1RF Rx Instructions: Trial inc ER acetaminophen 500 mg tablet 500 mg PO Q6H PRN PRN (Reason: pain) Qty: 40 3RF Discharge Instructions Additional Instructions: Take Ibuprofen (600mg every 6-8 hours) and Acetaminohen (500mg every 6 hours) as needed for baseline pain. Hydrocodone has been prescribed for any breakthrough pain. Stand Alone Forms: Pedro Arana Tunnel Release Referrals: Tim Vasquez MD [ [facility] STAFF PHYSICIAN] - Activity:: Elevate Remove Dressings/Wound Care:: 48 hours Shower/Bathe:: 48 hours Diet:: Carb Counting Discharge Orders Discharge Orders: Discharge Order (Routine); Ordered 12/10/22 Ordered By: Tim Vasquez DS: Diagnosis Discharge Diagnosis (1) Bilateral carpal tunnel syndrome: Status: Acute
[2022-12-10 07:16] VITALS: BMI 34.9
[2022-12-10] MEDS: ceFAZolin 2 GM/50 ML BAG IVPB (07:27)
[2022-12-10] MEDS: Lidocaine 1% Multi-Dose W/EPI 1/100,000 50 ML VIAL (07:32)
[2022-12-10] MEDS: Sodium Bicarbonate 50 MEQ/50 ML VIAL (07:32)
[2022-12-10 08:07] VITALS: BP 103/71; PULSE 74; RESP 18; TEMP 36.5; O2SAT 97
[2022-12-10 08:15] VITALS: BP 113/79; PULSE 72; RESP 16; TEMP 36.2; O2SAT 100
--- NOTE | 2022-12-10 08:52 | W.ANESPOSTOP ---
Postoperative Evaluation Date, Time and Location Date Performed: 12/10/22 Time Performed: 08:20 Patient Location: Day Surgery Unit Vital Signs Most Recent Imported Vital Signs: Most Recent Vital Signs Temp Pulse Resp BP Pulse Ox 36.2 C L 72 16 113/79 100 12/10/22 08:15 12/10/22 08:15 12/10/22 08:15 12/10/22 08:15 12/10/22 08:15 Pain Score Most Recent Pain Score: Most Recent Pain Score Pain Level 0 12/10/22 08:15 Assessment Mental Status: Awake (Alert & Oriented to Patient Baseline) Airway and Respiratory Function: Patent airway with normal (patient baseline) respiratory exam Cardiovascular Function: Hemodynamically Stable Hydration Status: Adequately Hydrated Nausea & Vomiting: No Nausea or Vomiting Pain: Pt. Denies Any Pain Peripheral Nerve Block: Patient did not receive a nerve block Postoperative Comments:: Patient seen earlier today. Double checked status with RN at second set of vital signs. Patient without complaint and wanting to go home. Patient discharged from anesthesia services.
--- NOTE | 2022-12-10 16:27 | ROE_ITS ---
Date of service: 12/10/22 Time of Service: 07:45 Operative Note Operative Note DATE OF PROCEDURE: 12/10/22 PRE-OP DIAGNOSIS: Right Carpal Tunnel Syndrome POST-OP DIAGNOSIS: same PROCEDURE: Right Endoscopic Carpal Tunnel Release SURGEON: Tim Vasquez ANESTHESIA TYPE: General:No Airway Refer to Anesthesia Record ESTIMATED BLOOD LOSS: 0 PATHOLOGY: none sent TOURNIQUET TIME: 5 COMPLICATIONS: None Patient was transported to: same day Patient's condition: stable Indications: I have seen Ebony in clinic for symptoms of carpal tunnel syndrome. The numbness, tingling, and pain limited function. Clinical exam findings with nerve conduction tests confirmed the diagnosis of carpal tunnel syndrome. Nonoperative measures such as bracing, time, activity modifications had been tried but disability and pain persisted. I discussed carpal tunnel release with the patient. She had a successful release on the left side. I reviewed the risks of the procedure to include, but not limited to, bleeding, infection, pain, stiffness, incomplete release, damage to nerves or vessels, persistent numbness, recurrence. Despite these risks, the patient elected to proceed. Findings: There was tightened carpal tunnel. This was dilated and released successfully with the endoscopic with increased space within the tunnel. The antebrachial fascia was released proximally freeing the median nerve at the wrist. Procedure Description: Ebony was greeted in the preoperative holding area where the correct side was identified and marked. The consent was reviewed with the patient and signed. The history and physical was updated. All questions were answered. She was taken back to the operating room. The patient was placed into the supine position on the operating room table with the right arm on an arm board. A nonsterile tourniquet was placed high onto the arm. All bony prominences were well padded. Prophylactic antibiotics in the form of Cefazolin were administered. The right arm was then prepped with Chloraprep and draped in a standard fashion with stockinette and extremity drape. A timeout to confirm correct identity, side and site, procedure, allergies, anesthesia, and medical concerns was performed. The surgical site was marked in the volar wrist creases in line with the radial border of the fourth ray. This area was anesthetized with approximately 6cc of 1% Lidocaine. The limb was then exsanguinated with an Esmarch. The skin was incised with a 15 blade, approximately 1cm. The skin only was cut and the deeper tissue was dissected bluntly with a tenotomy scissor, avoiding passing nerve and venous structures. The fascia was penetrated and opened bluntly. A two-prong skin hook was placed under this proximal fascial edge. A series of hamate finders were used to identify and dilate the carpal tunnel. Synovial elevator was used to free synovial attachments to the underside of the transverse carpal ligament. My thumb was kept in the palm to nacho the distal extent of the carpal tunnel and correctly position the hand. The Microaire endoscope was inserted without difficulty and without resistance. Excellent visualization showed horizontally running fibers of the transverse carpal liga ment (TCL). The distal extent of the TCL was visualized and the end of the scope palpated with the thumb. The blade was elevated and withdrawn from distal to proximal. The TCL was split into two flaps. The endoscope was reinserted to confirm complete release and any remnant ligament was incised. The scope was withdrawn and the proximal aspect of the carpal tunnel was grossly inspected and appeared release with the median nerve visible. The antebrachial fascia at the level of the wrist was then freed from the overlying skin and then the underlying median nerve with blunt dissection. This was transected longitudinally for about 3cm proximal to the wrist incision. The wound was then irrigated with easy flow of irrigant distally and proximally. The incision was closed with a single 4-0 Nylon suture. The wound was dressed with Xeroform, Gauze, Kerlix and Suhas. The tourniquet was deflated with the initial dressing and held with some pressure. Blood flow returned easily to all digits with capillary refill less than 2 seconds. The patient tolerated the procedure well and was returned to the Same Day Surgery area in a stable condition suffering no known complication.
== END 2022-12-10 08:35 | disposition home or self-care (01) ==
PROVIDERS: PCP Student in an Organized Health Care Education/Training Program; Visit Provider Student in an Organized Health Care Education/Training Program
PROC: 01N54ZZ Release Median Nerve, Percutaneous Endoscopic Approach (ICD-10-PCS; CPT 29848; principal; 2022-12-10 07:30)
DX: G56.01 Carpal tunnel syndrome, right upper limb (principal)
CPT/HCPCS: 29848; J0690; J2001; J2250; J2704; J3010

== ENCOUNTER 2023-01-09 04:07 | Outpatient (CLI) | payer MEDICAID, SELFPAY ==
[2023-01-09 08:29] LABS: Anion Gap 9.1 mmol/L (3-11); BUN 19 mg/dL (7-18); CO2 24.9 mmol/L (21.0-32.0); CREATININE 1.1 mg/dL (0.55-1.02); Calcium 8.9 mg/dL (8.5-10.1); Chloride 104 mmol/L (98-107); Estimated GFR 63.15 (mL/min/1.73m2); Glucose 168 mg/dL (74-106); Magnesium 2.1 mg/dL (1.8-2.4); Potassium 5.2 mmol/L (3.5-5.1); Sodium 138 mmol/L (136-145); TSH (W/Ref FT4) 0.46 uIU/mL (0.36-3.74)
[2023-01-09 18:38] LABS: T3,Free 3.6 pg/mL (2.8-5.3)
== END 2023-01-09 04:08 | disposition home or self-care (01) ==
LOC: LBO 04:07
PROVIDERS: PCP Student in an Organized Health Care Education/Training Program; Referring Provider Student in an Organized Health Care Education/Training Program; Visit Provider Student in an Organized Health Care Education/Training Program
DX: E04.1 Nontoxic single thyroid nodule (principal); F32.9 Major depressive disorder, single episode, unspecified; Z91.89 Other specified personal risk factors, not elsewhere classified; E61.2 Magnesium deficiency
CPT/HCPCS: 36415; 80048; 83735; 84443; 84481

== ENCOUNTER 2023-08-14 10:38 | Outpatient (CLI) | payer BC, SELFPAY ==
[2023-08-14 10:39] LABS: Abs Immature Grans 0.01 10^3/uL (0.0-0.06); Absolute Basophil Count 0.04 10^3/uL (0.0-0.2); Absolute Eosinophil Count 0.11 10^3/uL (0.0-0.7); Absolute Lymphocyte Count 2.82 10^3/uL (1.2-3.4); Absolute Neutrophil Count 2.84 10^3/uL (1.2-6.7); Basophils % 0.6; Eosinophils % 1.8; HCT 34.9 % (36.0-46.0); HGB 11.5 g/dL (11.2-15.7); Immature Grans % 0.2; Lymphocytes % 45.3; MCH 30.7 pg (27.0-33.0); MCV 93 fL (80-95); MPV 9.7 fL (8.0-11.0); Monocytes % 6.4; Neutrophils % 45.7; Platelet Count 287 10^3/uL (130-400); RBC 3.75 10^6/uL (3.93-5.22); RDW 13.7 % (11.7-14.6); RDW-SD 46.8 fL; WBC 6.22 10^3/uL (4.4-10.8)
[2023-08-14 11:30] LABS: ALT 52 U/L (14-59); AST 31 U/L (15-37); Albumin 3.9 g/dL (3.4-5.0); Alkaline Phosphatase 54 U/L (46-116); Anion Gap 9.7 mmol/L (3-11); BUN 18 mg/dL (7-18); Bilirubin, Total 0.3 mg/dL (0.2-1.0); CO2 26.3 mmol/L (21.0-32.0); CREATININE 0.9 mg/dL (0.55-1.02); Calculated LDL 199 mg/dL (<100); Chloride 103 mmol/L (98-107); Cholesterol 276 mg/dL (<200); Estimated GFR 80.34 (mL/min/1.73m2); Folate > 20.0 ng/mL (8.6-20.0); Glucose 108 mg/dL (74-106); HDL Cholesterol 59 mg/dL (40-60); Potassium 4.3 mmol/L (3.5-5.1); Sodium 139 mmol/L (136-145); Total Protein 8.4 g/dL (6.4-8.2); Triglyceride 90 mg/dL (<150); Vitamin B12 > 2000 pg/mL (193-986)
[2023-08-14 11:57] LABS: Vitamin D 25 Total 16.5 ng/mL (30-100)
[2023-08-14 18:25] LABS: Hepatitis B Surface Ag Negative (Negative)
[2023-08-14 18:54] LABS: Hepatitis C Ab w Rflx HCV PCR Negative (Negative)
[2023-08-14 18:58] LABS: HIV-1/2 Ag & Ab Screen Negative (Negative)
[2023-08-15 00:10] LABS: TSH 0.79 uIU/mL (0.36-3.74)
[2023-08-15 09:33] LABS: Syphilis Serology (RPR) Negative (Negative)
[2023-08-15 09:42] LABS: HSV Type 1 Ab, IgG Positive (Negative); HSV Type 2 Ab, IgG Negative (Negative)
== END 2023-08-14 10:39 | disposition home or self-care (01) ==
LOC: LBO 10:38
PROVIDERS: PCP Student in an Organized Health Care Education/Training Program; Visit Provider Student in an Organized Health Care Education/Training Program
DX: Z11.3 Encounter for screening for infections with a predominantly sexual mode of transmission (principal); E87.5 Hyperkalemia; G62.9 Polyneuropathy, unspecified; K90.9 Intestinal malabsorption, unspecified; R53.83 Other fatigue; Z13.220 Encounter for screening for lipoid disorders; Z91.89 Other specified personal risk factors, not elsewhere classified
CPT/HCPCS: 36415; 80053; 80061; 82306; 86803; 87340; 87389; 82607; 82746; 84443; 85025; 86592; 86695; 86696

== ENCOUNTER 2024-04-21 04:49 | Outpatient (CLI) | payer BC, SELFPAY ==
[2024-04-21 17:19] LABS: Anion Gap 9.9 mmol/L (3-11); BUN 12 mg/dL (7-18); CO2 27.1 mmol/L (21.0-32.0); CREATININE 0.8 mg/dL (0.55-1.02); Calcium 9.2 mg/dL (8.5-10.1); Chloride 105 mmol/L (98-107); Estimated GFR 91.97 (mL/min/1.73m2); Glucose 83 mg/dL (74-106); Potassium 4.2 mmol/L (3.5-5.1); Sodium 142 mmol/L (136-145); Vitamin D 25 Total 23.2 ng/mL (30-100)
== END 2024-04-21 04:50 | disposition home or self-care (01) ==
PROVIDERS: PCP Student in an Organized Health Care Education/Training Program; Visit Provider Student in an Organized Health Care Education/Training Program
DX: E46 Unspecified protein-calorie malnutrition; R79.89 Other specified abnormal findings of blood chemistry; I10 Essential (primary) hypertension; R53.83 Other fatigue; M19.90 Unspecified osteoarthritis, unspecified site; H35.00 Unspecified background retinopathy
CPT/HCPCS: 80048; 82306; 82728; 83540; 83550